=== PATIENT | female | born 1930 | race Caucasian/White ===

== ENCOUNTER 2017-05-25 10:29 | Inpatient (IN) | payer OTHER, BC ==
--- NOTE | 2017-05-25 10:45 | PDOC ---
History of Present Illness - General History Source: Patient, Family Exam Limitations: No Limitations - History of Present Illness Initial Comments: 05/25/17 11:28 85 year old female, with significant past medical history of colitis, anxiety, HTN, HLD, and kidney stones, who presents to the emergency room today complaining of 2 episodes of diarrhea and crampy lower abdominal pain over the past 3 days. The patient states that she experienced one episode of diarrhea on Friday and another episode of diarrhea today. Denies blood and mucous in the stool. She explains that the episode of diarrhea came on so quickly, that it got all over her bed. When she went into the shower to clean up, she accidentally fell into the laundry basket. She denies head trauma, LOC, and any injuries. She notes that she also had an episode of non exertional SOB that occurred at rest last night around 1am. She described this episode as a weird feeling as if she could not catch her breath that she has never experienced before. She took a Xanax and was able to fall asleep. Denies chest pain, cough. Denies fever, chills, nausea, vomiting. Denies recent travel, sick contact. Denies leg swelling. Denies dysuria, hematuria, urinary frequency. Allergies: Sulfa Surgical hx: appendectomy, uterine sling, ovarian cyst removal, bilateral meniscus repairs Social hx: Current everyday tobacco use (4 cigarettes/day over the past year). No alcohol or drug use. PCP: Dr. Sang Matute Caseworker Dr. Ponce Becker <Kait Umaña - Last Filed: 05/25/17 12:49> <Brooke Scuhlz - Last Filed: 05/25/17 15:35> - General Chief Complaint: Diarrhea Stated Complaint: ABD PAIN Time Seen by Provider: 05/25/17 10:44 Past History <Kait Umaña - Last Filed: 05/25/17 12:49> - Past Medical History COPD: No GI Disorders: Yes (LOW PANCREATIC ENZYMES) Disorders: Yes (COLITIS) Hypercholesterolemia: Yes Psychiatric Problems: Yes (ANXIETY) - Surgical History Abdominal Surgery: Yes Appendectomy: Yes Orthopedic Surgery: Yes (LEFT KNEE ARTHROSCOPY & RIGHT) - Suicide/Smoking/Psychosocial Hx Smoking History: Current every day smoker Have you smoked in the past 12 months: No Number of Cigarettes Smoked Daily: 4 If you are a former smoker, when did you quit?: 15YRS AGO Information on smoking cessation initiated: No Hx Alcohol Use: No Drug/Substance Use Hx: No Substance Use Type: None Hx Substance Use Treatment: No <ZeusBrooke - Last Filed: 05/25/17 15:35> - Past Medical History Allergies/Adverse Reactions: Allergies Allergy/AdvReac Type Severity Reaction Status Date / Time Sulfa (Sulfonamide AdvReac Nausea Verified 05/25/17 10:36 Antibiotics) Home Medications: Ambulatory Orders Rosuvastatin [Crestor -] 5 mg PO HS 07/09/13 Cranberry 0 mg PO TID 05/25/17 Lipase/Protease/Amylase [Zenpep Dr 10,000 Units Capsule] 40,000 units PO TID 09/06 Review of Systems - Review of Systems Able to Perform ROS?: Yes Comments:: 05/25/17 11:28 GENERAL/CONSTITUTIONAL: No fever or chills. No weakness. HEAD, EYES, EARS, NOSE AND THROAT: No change in vision. No ear pain or discharge. No sore throat. GASTROINTESTINAL: +diarrhea, mild lower abdominal cramping. No nausea, vomiting , or constipation. GENITOURINARY: No dysuria, frequency, or change in urination. CARDIOVASCULAR: No chest pain or shortness of breath. RESPIRATORY: No cough, wheezing, or hemoptysis. MUSCULOSKELETAL: No joint or muscle swelling or pain. No neck or back pain. SKIN: No rash NEUROLOGIC: No headache, vertigo, loss of consciousness, or change in strength/ sensation. ENDOCRINE: No increased thirst. No abnormal weight change. HEMATOLOGIC/LYMPHATIC: No anemia, easy bleeding, or history of blood clots. ALLERGIC/IMMUNOLOGIC: No hives or skin allergy. <Kait Umaña - Last Filed: 05/25/17 12:49> *Physical Exam - Vital Signs Last Vital Signs Temp Pulse Resp BP Pulse Ox 97.4 F L 87 20 102/57 99 05/25/17 10:32 05/25/17 10:32 05/25/17 10:32 05/25/17 10:32 05/25/17 10:32 - Physical Exam Comments: 05/25/17 11:28 Constitutional: Awake, alert, oriented. No acute distress. Head: Normocephalic. Atraumatic Eyes: PERRL. EOMI. Conjunctivae are not pale. ENT: Mucous membranes are moist and intact. Posterior pharynx without exudates or erythema. Uvula midline. Neck: Supple. Full ROM. No lymphadenopathy. Cardiovascular: Regular rate. Regular rhythm. S1, S2 regular. Distal pulses are 2+ and symmetric. Pulmonary/Chest: +tachypnea, +diminished breath sounds bilaterally, + conversational dyspnea. No evidence of respiratory distress. No wheezing, rales or rhonchi. Abdominal: Soft and non-distended. There is no tenderness. No rebound, guarding or rigidity. No organomegaly. No palpable masses. Good bowel sounds. Back: No CVA tenderness. Musculoskeletal: No edema. No cyanosis. No clubbing. Full range of motion in all extremities. Nocalf tenderness. Radial/pedal pulses are intact and 2+ bilaterally Skin: Skin is warm and dry. No petechiae. No purpura. Neurological: Alert and oriented to person, place, and time. Cranial nerves II -XII are grossly intact. Normal speech. Strength is grossly symmetric. No sensory deficits. Psychiatric: Good eye contact. Normal interaction, affect and behavior. <Kait Umaña - Last Filed: 05/25/17 12:49> - Vital Signs Last Vital Signs Temp Pulse Resp BP Pulse Ox 97.4 F L 87 20 102/57 99 05/25/17 10:32 05/25/17 10:32 05/25/17 10:32 05/25/17 10:32 05/25/17 10:32 <Brooke Schulz - Last Filed: 05/25/17 15:35> Heart Score/ECG Review - ECG Intrepretation Comment:: 05/25/17 11:26 sinus at 73, poor r wave progression, q waves anterior and inferior leads that are age indeterminate. no acute st/t wave findings <Brooke Schulz - Last Filed: 05/25/17 15:35> ED Treatment Course - LABORATORY CBC & Chemistry Diagram: 05/25/17 11:45 05/25/17 11:45 <Kait Umaña - Last Filed: 05/25/17 12:49> - LABORATORY CBC & Chemistry Diagram: 05/25/17 11:45 12/03/17 11:45 <Brooke Schulz - Last Filed: 05/25/17 15:35> Medical Decision Making - Critical Care Time Total Critical Care Time (minutes): 30 Critical Care Statement: The care of this patient involved high complexity decision making to prevent further life threatening deterioration of the patient 's condition and/or to evaluate & treat vital organ system(s) failure or risk of failure. - Medical Decision Making 05/25/17 11:03 a/p: 86yo female with diarrhea x 2, sob/dyspnea, lower abd pain -feels generally weak, needs acs workup, ct abd/pelvis, ekg, cxr, labs, electrolytes -concern for colitis vs viral illness. -will give ivf and monitor 05/25/17 12:52 pt with elevated wbc count to 21, cxr clear, awaiting ct abd also with elevated trop to 3, elevated cr to 2 from baseline. pt never had cp and doesn't have cp currnelty. will continue ivf hydration call placed to dr. matute and dr becker pt will need to be admitted updated pt and agrees to stay for further eval. 05/25/17 13:[address] weems who is eval the ekg and will see the patient in consult tomorrow. poss type 2 troponin spill 05/25/17 13:[address] matute - accepts pt to service. tele. 05/25/17 15:[address] matute to give update on ct results. will place consult to urology for hydro and 5.5mm nonobstructing stone. <Brooke Schulz - Last Filed: 05/25/17 15:35> *DC/Admit/Observation/Transfer - Attestations Scribe Attestion: 05/25/17 11:29 Documentation prepared by NADIA Coburn, acting as biomedical instrument technician for Brooke Schulz DO. <Kait Umaña - Last Filed: 05/25/17 12:49> - Discharge Dispostion Admit: Yes - Attestations Physician Attestion: 05/25/17 12:53 I, Dr. Brooke Schulz DO, attest that this document has been prepared under my direction and personally reviewed by me in its entirety. I further attest, that it accurately reflects all work, treatment, procedures and medical decision -making performed by me. <Brooke Schulz - Last Filed: 05/25/17 15:35> Diagnosis at time of Disposition: NSTEMI (non-ST elevated myocardial infarction), JUDIE (acute kidney injury), Leukocytosis, Diarrhea, Hydronephrosis - Discharge Dispostion Condition at time of disposition: Guarded
[2017-05-25] MEDS ORDERED: SODIUM CHLORIDE 0.9% 1000 ML INFUS.BAG IV ONE (11:04)
[2017-05-25 12:03] LABS: MCH 29.3 pg (25.7-33.7); MCHC 33.2 g/dl (32.0-36.0); MEAN CELL VOLUME 88.3 fl (80-96); MEAN PLT VOLUME 7.8 fl (7.5-11.1); PLATELET COUNT 184 K/MM3 (134-434); RDW 13.7 % (11.6-15.6); WHITE BLOOD COUNT 21.3 K/mm3 (4.0-10.0)
[2017-05-25 12:27] LABS: ALBUMIN 3.5 g/dl (3.4-5.0); ANION GAP 12 (8-16); BILIRUBIN,TOTAL 0.8 mg/dL (0.2-1.0); CALCIUM 8.5 mg/dL (8.5-10.1); CO2 23 mmol/L (21-32); GLUCOSE,RANDOM 145 mg/dL (74-106); SGPT/ALT 34 U/L (12-78)
[2017-05-25 12:42] LABS: ALK PHOS 90 U/L (45-117); CPK 276 IU/L (26-192)
[2017-05-25 12:46] LABS: MAGNESIUM 1.8 mg/dL (1.8-2.4); SGOT/AST 50 U/L (15-37); TROPONIN I 3.27 ng/ml (0.00-0.05)
[2017-05-25] MEDS ORDERED: ASPIRIN 81 MG CHEWABLE TABLETS PO ONE (12:51)
[2017-05-25] MEDS ORDERED: ASPIRIN 325 MG TABLET ONE (13:19)
[2017-05-25 14:00] LABS: TOTAL CELLS COUNTED 100
[2017-05-25 14:01] LABS: METAMYELOCYTE 2 % (0-2); PLATELET ESTIMATE ADEQUATE
[2017-05-25 15:06] VITALS: BMI 26.9
[2017-05-25] MEDS: METRONIDAZOLE 500 MG PREMIXED 500 MG/100 ML MG IVPB SCH ×2 (17:03→20:47)
[2017-05-25 17:23] LABS: TROPONIN I 2.52 ng/ml (0.00-0.05)
[2017-05-25] MEDS: SODIUM CHLORIDE 1,000 ML IV SCH (17:33)
[2017-05-25 18:02] LABS: URINE APPEARANCE CLOUDY; URINE BILIRUBIN NEGATIVE (NEGATIVE); URINE BLOOD 2+ (NEGATIVE); URINE COLOR YELLOW; URINE GLUCOSE (UA) NEGATIVE (NEGATIVE); URINE KETONE NEGATIVE (NEGATIVE); URINE NITRITE NEGATIVE (NEGATIVE); URINE UROBILINOGEN NEGATIVE mg/dL (0.2-1.0)
[2017-05-25 18:07] LABS: URINE PROTEIN 2+ (NEGATIVE)
[2017-05-25 18:09] LABS: URINE BACTERIA MODERATE /hpf (NONE SEEN); URINE MUCUS RARE; URINE RBC 11 /hpf (0-3); URINE WBC 347 /hpf (3-5)
[2017-05-25] MEDS: ROSUVASTATIN CA 5 MG TABLET (FP) PO SCH (21:07)
[2017-05-25 21:48] LABS: URINE LEUK ESTERASE 3+ (NEGATIVE)
[2017-05-26 00:53] LABS: TROPONIN I 1.51 ng/ml (0.00-0.05)
[2017-05-26] MEDS: METRONIDAZOLE 500 MG PREMIXED 500 MG/100 ML MG IVPB SCH ×4 (02:16→23:39)
[2017-05-26 07:09] LABS: BASOPHIL 0.2 % (0-2.0); EOSINOPHIL 0.5 % (0-4.5); MCH 29.2 pg (25.7-33.7); MEAN CELL VOLUME 88.4 fl (80-96); MEAN PLT VOLUME 7.3 fl (7.5-11.1); NEUTROPHILS 88.1 % (42.8-82.8); PLATELET COUNT 132 K/MM3 (134-434); WHITE BLOOD COUNT 12.3 K/mm3 (4.0-10.0)
[2017-05-26 07:35] LABS: ALBUMIN 2.8 g/dl (3.4-5.0); ANION GAP 8 (8-16); CALCIUM 7.9 mg/dL (8.5-10.1); CO2 24 mmol/L (21-32); GLUCOSE,RANDOM 92 mg/dL (74-106)
[2017-05-26 07:38] LABS: ALK PHOS 76 U/L (45-117); BILIRUBIN,TOTAL 0.6 mg/dL (0.2-1.0); CREATININE 1.2 mg/dL (0.55-1.02); SGOT/AST 33 U/L (15-37); SGPT/ALT 28 U/L (12-78); TOT PROT 5.1 g/dl (6.4-8.2)
[2017-05-26 08:01] LABS: TROPONIN I 1.16 ng/ml (0.00-0.05)
--- NOTE | 2017-05-26 10:10 | HP ---
Admitting History and Physical - Primary Care Physician PCP: Sang Matute - Admission Chief Complaint: Diarrhea. Weakness. ABnormal Cardiac enzimes History of Present Illness: Pt came to ER after an episode on watery stool incontinency while asleep and weakness. Pt with watery stool 2 days prior to nocturnal episode mentioned. In ER pt was noticed to have elevated Trop I. Pt also with left Hydronephrosis ( on abd/ pelvis CT scan). Pt was admitted to telemetry. Cardi and consults were called in. History Source: Patient - Past Medical History Cardiovascular: Yes: HTN, Hyperlipdemia - Smoking History Smoking history: Current every day smoker Have you smoked in the past 12 months: No Aproximately how many cigarettes per day: 4 If you are a former smoker, when did you quit?: 15YRS AGO - Alcohol/Substance Use Hx Alcohol Use: No History of Substance Use: reports: None - Social History ADL: Independent History of Recent Travel: No Home Medications - Allergies Allergies/Adverse Reactions: Allergies Allergy/AdvReac Type Severity Reaction Status Date / Time Sulfa (Sulfonamide AdvReac Nausea Verified 05/25/17 10:36 Antibiotics) - Home Medications Home Medications: Ambulatory Orders Rosuvastatin [Crestor -] 5 mg PO HS 07/09/13 Cranberry 0 mg PO TID 05/25/17 Lipase/Protease/Amylase [Zenpep Dr 10,000 Units Capsule] 40,000 units PO TID 09/06 Review of Systems - Review of Systems Constitutional: denies: Chills, Fever Eyes: denies: Blurred Vision, Double Vision HENT: denies: Difficult Swallowing, Ear Discharge, Ear Pain, Nasal Congestion, Throat Pain Neck: denies: Pain on Movement, Stiffness, Tenderness Cardiovascular: denies: Chest Pain, Edema, Palpitations Respiratory: reports: SOB. denies: Cough Gastrointestinal: reports: Diarrhea, Nausea. denies: Rectal Bleeding, Vomiting Genitourinary: denies: Burning, Discharge, Dysuria Musculoskeletal: denies: Back Pain, Extremity Pain, Joint Swelling Integumentary: denies: Eczema, Rash Neurological: denies: Change in Speech, Numbness Endocrine: denies: Excessive Sweating, Intolerance to Cold Hematology/Lymphatic: denies: Easily Bruised, Excessive Bleeding Psychiatric: denies: Altered Sleep Pattern, Anxiety Physical Examination Vital Signs: Vital Signs Temperature 98.4 F 12/04/17 06:00 Pulse Rate 71 05/26/17 06:00 Respiratory Rate 20 05/26/17 06:00 Blood Pressure 132/74 05/26/17 06:00 O2 Sat by Pulse Oximetry (%) 97 05/25/17 20:00 Constitutional: Yes: Well Nourished, No Distress Eyes: Yes: Conjunctiva Clear, EOM Intact, PERRL HENT: Yes: Normocephalic, Pharyngeal Erythema. No: Epistaxis, Rhinnorhea Neck: Yes: Trachea Midline. No: Lymphadenopathy Cardiovascular: Yes: Regular Rate and Rhythm, S1, S2 Respiratory: Yes: Regular, CTA Bilaterally. No: Rales Gastrointestinal: Yes: Soft. No: Normal Bowel Sounds, Hepatomegaly, Palpable Mass, Splenomegaly, Vomiting ...Rectal Exam: Yes: Deferred Breast(s): Yes: Other (deferred) Musculoskeletal: No: Back Pain, Joint Swelling Edema: No Neurological: Yes: Alert, Oriented, Cran Nerves II-XII Intact Labs: CBC, BMP 05/26/17 05:40 05/26/17 05:40 Imaging - Results Chest X-ray: Report Reviewed Cat Scan: Report Reviewed Problem List - Problems (1) Diarrhea Code(s): R19.7 - DIARRHEA, UNSPECIFIED (2) Abnormal cardiac enzyme level Code(s): R74.8 - ABNORMAL LEVELS OF OTHER SERUM ENZYMES (3) Hypertension Code(s): I10 - ESSENTIAL (PRIMARY) HYPERTENSION (4) Hyperlipidemia Code(s): E78.5 - HYPERLIPIDEMIA, UNSPECIFIED (5) Weakness Code(s): R53.1 - WEAKNESS (6) Renal cyst Code(s): N28.1 - CYST OF KIDNEY, ACQUIRED (7) Diverticulosis Code(s): K57.90 - DVRTCLOS OF INTEST, PART UNSP, W/O PERF OR ABSCESS W/O BLEED (8) Hydronephrosis Code(s): N13.30 - UNSPECIFIED HYDRONEPHROSIS Assessment/Plan Admit to telemetry Serial CE Cardio consult consult GI consult IV Flagyl IVF Liquid Diet AM labs OOBTC w Assistance. Case was D/w pt's nurse.
--- NOTE | 2017-05-26 12:09 | CON.CARD ---
Consult Consult Specialty:: Cardiology Referred by:: Dr. Matute Reason for Consultation:: Cardiac evaluation - History of Present Illness Chief Complaint: Elevated troponin History of Present Illness: Patient is an 85 year old female with underlying history of hypertension, hypercholesterolemia, nephrolithiasis and colitis who presents with episode of diarrhea and abdominal cramp. She took Xanax and fell asleep. She soiled her bed with diarrhea when she woke up. When she went to the bathroom to clean up, she accidentally fell into the laundry basket. She denies any trauma or LOC. She has no visible injuries. She also had episode of shortness of breath. She was brought into the hospital at the advice of her children. Currently, she denies chest pain, shortness of breath or palpitations. She did have an episode of difficulty catching her breath, but could not elaborate her symptoms. She denies paroxysmal nocturnal dyspnea or orthopnea. She denies fever or chills. She denies headache or lightheadedness. - History Source History Provided By: Patient, Medical Record Limitations to Obtaining History: No Limitations - Past Medical History Cardio/Vascular: Yes: HTN, Hyperlipdemia Renal/: Yes: Renal Calculi - Past Surgical History Past Surgical History: Yes: Appendectomy Additional Surgical History: Uterine sling, ovarian cyst removal, meniscus repair - Alcohol/Substance Use Hx Alcohol Use: No History of Substance Use: reports: None - Smoking History Smoking history: Current every day smoker Have you smoked in the past 12 months: No Aproximately how many cigarettes per day: 4 If you are a former smoker, when did you quit?: 15YRS AGO - Social History ADL: Independent History of Recent Travel: No Home Medications - Allergies Allergies/Adverse Reactions: Allergies Allergy/AdvReac Type Severity Reaction Status Date / Time Sulfa (Sulfonamide AdvReac Nausea Verified 05/25/17 10:36 Antibiotics) - Home Medications Home Medications: Ambulatory Orders Rosuvastatin [Crestor -] 5 mg PO HS 07/09/13 Cranberry 0 mg PO TID 05/25/17 Lipase/Protease/Amylase [Liyah Jiang 10,000 Units Capsule] 40,000 units PO TID 09/06 Review of Systems - Review of Systems Constitutional: denies: Chills, Fever Cardiovascular: reports: Shortness of Breath. denies: Chest Pain, Palpitations Respiratory: denies: Cough, Orthopnea, PND Gastrointestinal: reports: Abdominal Pain, Diarrhea. denies: Constipation, Melena, Nausea, Rectal Bleeding, Vomiting Genitourinary: denies: Dysuria, Flank Pain, Hematuria Neurological: reports: Weakness. denies: Dizziness, Headache, Numbness, Seizure , Syncope Vital Signs: Vital Signs Temperature 98.4 F 05/26/17 06:00 Pulse Rate 71 05/26/17 06:00 Respiratory Rate 20 05/26/17 06:00 Blood Pressure 132/74 05/26/17 06:00 O2 Sat by Pulse Oximetry (%) 97 05/25/17 20:00 Neck: Yes: Supple Respiratory: Yes: CTA Bilaterally Gastrointestinal: Yes: Normal Bowel Sounds, Soft. No: Tenderness Cardiovascular: Yes: Regular Rate and Rhythm JVD: No Carotid Bruit: No PMI: Non-Displaced Heart Sounds: Yes: S1, S2 Murmur: Yes: Systolic Murmur, Grade 1 Edema: No - Other Data Labs, Other Data: CBC, BMP 05/26/17 05:40 05/26/17 05:40 Troponin, BNP 05/25/17 05/25/17 05/25/17 11:45 11:45 16:35 Troponin I 3.27 H* 2.52 H* B-Natriuretic Peptide 7007.24 H 05/25/17 05/26/17 23:00 05:40 Troponin I 1.51 H* 1.16 H* B-Natriuretic Peptide Sinus rhythm with LVH Echo: Pending Problem List - Problems (1) Demand ischemia Code(s): I24.8 - OTHER FORMS OF ACUTE ISCHEMIC HEART DISEASE (2) Diarrhea Code(s): R19.7 - DIARRHEA, UNSPECIFIED Qualifiers: Diarrhea type: unspecified type Qualified Code(s): R19.7 - Diarrhea, unspecified (3) Diverticulosis Code(s): K57.90 - DVRTCLOS OF INTEST, PART UNSP, W/O PERF OR ABSCESS W/O BLEED Qualifiers: Diverticulosis site: unspecified location Diverticulosis bleeding: diverticulosis without bleeding Qualified Code(s): K57.90 - Diverticulosis of intestine, part unspecified, without perforation or abscess without bleeding (4) Hyperlipidemia Code(s): E78.5 - HYPERLIPIDEMIA, UNSPECIFIED Qualifiers: Hyperlipidemia type: pure hypercholesterolemia Qualified Code(s): E78.00 - Pure hypercholesterolemia, unspecified; E78.0 - Pure hypercholesterolemia (5) Hypertension Code(s): I10 - ESSENTIAL (PRIMARY) HYPERTENSION Qualifiers: Hypertension type: essential hypertension Qualified Code(s): I10 - Essential (primary) hypertension (6) Colitis Code(s): K52.9 - NONINFECTIVE GASTROENTERITIS AND COLITIS, UNSPECIFIED (7) NSTEMI (non-ST elevated myocardial infarction) Code(s): I21.4 - NON-ST ELEVATION (NSTEMI) MYOCARDIAL INFARCTION Assessment/Plan 1. Diarrhea with underlying history of colitis - currently stable 2. Elevated troponin - demand ischemic injury 3. Hypertension 4. Hypercholesterolemia 5. History of renal calculi PLAN: 1. If BP remains elevated, may consider initiating anti-hypertensive. May consider beta christina therapy. Also initiate ASA if not contraindicated 2. Continue Crestor 3. Transthoracic echocardiography to assess LV/RV and valvular function 4. Trend cardiac enzymes 5. GI input to follow 6. Further cardiac work up may be considered including nuclear stress testing, but can be done as outpatient as patient currently remains asymptomatic Further plans are to follow Ponce Becker MD
[2017-05-26] MEDS ORDERED: PT OWN MED DRAWER 7, Y5N ONE ×3 (12:26→17:01)
[2017-05-26] MEDS: LIPASE/PROTEASE/AMYLASE 36,000 UNIT CAPSULE PO SCH ×3 (12:36→17:03)
--- NOTE | 2017-05-26 13:28 | EKG ---
Test Reason : Blood Pressure : / mmHG Vent. Rate : 073 BPM Atrial Rate : 073 BPM P-R Int : 184 ms QRS Dur : 098 ms QT Int : 436 ms P-R-T Axes : 042 -13 027 degrees QTc Int : 480 ms NORMAL SINUS RHYTHM VOLTAGE CRITERIA FOR LEFT VENTRICULAR HYPERTROPHY ABNORMAL ECG WHEN COMPARED WITH ECG OF 29-NOV-2014 19:41, PREMATURE ATRIAL COMPLEXES ARE NO LONGER PRESENT Confirmed by ANDRA MCALLISTER MD ([id number]) on 05/26/2017 1:28:31 PM Referred By: Confirmed By:ANDRA MCALLISTER MD
--- NOTE | 2017-05-26 13:28 | EKG ---
Test Reason : Blood Pressure : / mmHG Vent. Rate : 064 BPM Atrial Rate : 064 BPM P-R Int : 198 ms QRS Dur : 096 ms QT Int : 480 ms P-R-T Axes : 062 -11 012 degrees QTc Int : 495 ms NORMAL SINUS RHYTHM MODERATE VOLTAGE CRITERIA FOR LVH, MAY BE NORMAL VARIANT PROLONGED QT ABNORMAL ECG WHEN COMPARED WITH ECG OF 25-MAY-2017 11:10, NO SIGNIFICANT CHANGE WAS FOUND Confirmed by ESVIN YANG, ANDRA ([id number]) on 05/26/2017 1:28:08 PM Referred By: Confirmed By:ANDRA MCALLISTER MD
[2017-05-26] MEDS: SODIUM CHLORIDE 1,000 ML IV SCH (16:07)
[2017-05-26] MEDS: ASPIRIN COATED 81 MG TABLET.EC PO SCH (23:38)
[2017-05-26] MEDS: ROSUVASTATIN CA 5 MG TABLET (FP) PO SCH (23:39)
[2017-05-27] MEDS: METRONIDAZOLE 500 MG PREMIXED 500 MG/100 ML MG IVPB SCH ×4 (03:51→22:07)
[2017-05-27 07:26] LABS: MCH 29.6 pg (25.7-33.7); MCHC 33.6 g/dl (32.0-36.0); MEAN CELL VOLUME 88.1 fl (80-96); MEAN PLT VOLUME 7.7 fl (7.5-11.1); PLATELET COUNT 121 K/MM3 (134-434); RDW 13.9 % (11.6-15.6); WHITE BLOOD COUNT 7.4 K/mm3 (4.0-10.0)
[2017-05-27] MEDS: LIPASE/PROTEASE/AMYLASE 36,000 UNIT CAPSULE PO SCH ×3 (08:23→17:35)
[2017-05-27 08:30] LABS: ALBUMIN 2.8 g/dl (3.4-5.0); ALK PHOS 104 U/L (45-117); ANION GAP 10 (8-16); CALCIUM 7.1 mg/dL (8.5-10.1); CO2 19 mmol/L (21-32); CPK 122 IU/L (26-192); CREATININE 0.9 mg/dL (0.55-1.02); GLUCOSE,RANDOM 116 mg/dL (74-106); SGOT/AST 26 U/L (15-37); SGPT/ALT 23 U/L (12-78); TOT PROT 5.3 g/dl (6.4-8.2); TROPONIN I 0.55 ng/ml (0.00-0.05)
--- NOTE | 2017-05-27 09:54 | PN ---
Progress Note, Physician History of Present Illness: Pt with more formed stool, no N, V, abd pain; she wants to eat "normal" food. Pt w/o SOB, CP, palp. - Current Medication List Current Medications: Active Medications Aspirin (Ecotrin -) 81 mg PO DAILY [facility] Last Admin: 05/26/17 23:38 Dose: 81 mg Metronidazole (Flagyl 500mg Premixed Ivpb -) 500 mg in 100 mls @ 100 mls/hr IVPB Q6H-IV [facility] Last Admin: 05/27/17 09:22 Dose: 100 mls/hr Sodium Chloride (Normal Saline -) 1,000 mls @ 75 mls/hr IV ASDIR [facility] Last Admin: 05/26/17 16:07 Dose: Not Given Metoprolol Tartrate (Lopressor -) 25 mg PO BID [facility] Pancrelipase (Creon Dr 36,000 Units Capsule) 1 cap PO TIDCM [facility] Last Admin: 05/27/17 08:23 Dose: 1 cap Rosuvastatin Calcium (Crestor -) 5 mg PO HS [facility] Last Admin: 05/26/17 23:39 Dose: 5 mg - Objective Vital Signs: Vital Signs Temperature 99.4 F 05/27/17 06:00 Pulse Rate 96 H 05/27/17 06:00 Respiratory Rate 18 05/27/17 06:00 Blood Pressure 163/81 05/27/17 06:00 O2 Sat by Pulse Oximetry (%) 98 05/26/17 22:00 Constitutional: Yes: No Distress, Calm Cardiovascular: Yes: Regular Rate and Rhythm, S1, S2 Respiratory: Yes: Regular, CTA Bilaterally. No: Rales Gastrointestinal: Yes: Normal Bowel Sounds, Soft. No: Tenderness Edema: No Neurological: Yes: Alert, Oriented Labs: CBC, BMP 05/27/17 06:30 05/27/17 06:30 Problem List - Problems (1) Diarrhea Code(s): R19.7 - DIARRHEA, UNSPECIFIED Qualifiers: Diarrhea type: unspecified type Qualified Code(s): R19.7 - Diarrhea, unspecified (2) Abnormal cardiac enzyme level Code(s): R74.8 - ABNORMAL LEVELS OF OTHER SERUM ENZYMES (3) Hypertension Code(s): I10 - ESSENTIAL (PRIMARY) HYPERTENSION Qualifiers: Hypertension type: essential hypertension Qualified Code(s): I10 - Essential (primary) hypertension (4) Hyperlipidemia Code(s): E78.5 - HYPERLIPIDEMIA, UNSPECIFIED Qualifiers: Hyperlipidemia type: pure hypercholesterolemia Qualified Code(s): E78.00 - Pure hypercholesterolemia, unspecified; E78.0 - Pure hypercholesterolemia (5) Weakness Code(s): R53.1 - WEAKNESS (6) Renal cyst Code(s): N28.1 - CYST OF KIDNEY, ACQUIRED (7) Diverticulosis Code(s): K57.90 - DVRTCLOS OF INTEST, PART UNSP, W/O PERF OR ABSCESS W/O BLEED Qualifiers: Diverticulosis site: unspecified location Diverticulosis bleeding: diverticulosis without bleeding Qualified Code(s): K57.90 - Diverticulosis of intestine, part unspecified, without perforation or abscess without bleeding (8) Hydronephrosis Code(s): N13.30 - UNSPECIFIED HYDRONEPHROSIS (9) Hypokalemia Code(s): E87.6 - HYPOKALEMIA Assessment/Plan Admitted to telemetry Serial CE Cardio consult appreciated; case was d/w Dr. Bedoya: no additional tests now if CE are trending down. consult appreciated; case was d/w Dr. Diggs: to f/u as outpationt. GI consult IV Flagyl IVF Liquid Diet AM labs OOBTC w Assistance. Case was D/w pt's nurse.
--- NOTE | 2017-05-27 09:56 | CON.GU ---
Consult Consult Specialty:: Urology Reason for Consultation:: Bilateral nonobstructing renal calculi - History of Present Illness Chief Complaint: Watery diarrhea. No flank pain. - History Source History Provided By: Patient Limitations to Obtaining History: No Limitations - Past Medical History Cardio/Vascular: Yes: HTN, Hyperlipdemia Gastrointestinal: Yes: Other (See HPI) Renal/: Yes: Renal Calculi - Past Surgical History Past Surgical History: Yes: Appendectomy Additional Surgical History: Uterine sling, ovarian cyst removal, meniscus repair - Alcohol/Substance Use Hx Alcohol Use: No History of Substance Use: reports: None - Smoking History Smoking history: Current every day smoker Have you smoked in the past 12 months: No Aproximately how many cigarettes per day: 4 If you are a former smoker, when did you quit?: 15YRS AGO - Social History ADL: Independent History of Recent Travel: No Home Medications - Allergies Allergies/Adverse Reactions: Allergies Allergy/AdvReac Type Severity Reaction Status Date / Time Sulfa (Sulfonamide AdvReac Nausea Verified 05/25/17 10:36 Antibiotics) - Home Medications Home Medications: Ambulatory Orders Rosuvastatin [Crestor -] 5 mg PO HS 07/09/13 Cranberry 0 mg PO TID 05/25/17 Lipase/Protease/Amylase [Zenpep Dr 10,000 Units Capsule] 40,000 units PO TID 09/06 Family Disease History - Family Disease History Family History: Unremarkable Review of Systems - Review of Systems Constitutional: reports: No Symptoms Eyes: reports: No Symptoms HENT: reports: No Symptoms Neck: reports: No Symptoms Cardiovascular: reports: No Symptoms Respiratory: reports: No Symptoms Gastrointestinal: reports: No Symptoms, Diarrhea Genitourinary: denies: No Symptoms, Burning, Discharge, Dysuria, Flank Pain, Frequency, Hematuria, Incontinence, Lesions, Menses, Pain, Testicular Mass, Testicular Pain, Testicular Swelling, Urgency, Vaginal Bleeding, Other Breasts: reports: No Symptoms Reported Musculoskeletal: reports: No Symptoms Integumentary: reports: No Symptoms Neurological: reports: No Symptoms Endocrine: reports: No Symptoms Hematology/Lymphatic: reports: No Symptoms Psychiatric: reports: No Symptoms Physical Exam- Vital Signs: Vital Signs Temperature 99.4 F 05/27/17 06:00 Pulse Rate 96 H 05/27/17 06:00 Respiratory Rate 18 05/27/17 06:00 Blood Pressure 163/81 05/27/17 06:00 O2 Sat by Pulse Oximetry (%) 98 05/26/17 22:00 Constitutional: Yes: Well Nourished, No Distress Eyes: Yes: WNL HENT: Yes: WNL Neck: Yes: WNL Cardiovascular: Yes: WNL Respiratory: Yes: WNL Gastrointestinal: Yes: WNL, Normal Bowel Sounds, Soft. No: Tenderness, Rebound Renal/: Yes: WNL. No: Bladder Distention, CVA Tenderness - Left, CVA Tenderness - Right, Grant Present Kidneys: Yes: WNL Pelvis: Yes: WNL External Genitalia: Yes: WNL Musculoskeletal: Yes: WNL Extremities: Yes: WNL Edema: No Peripheral Pulses WNL: No Integumentary: Yes: WNL Wound/Incision: Yes: Clean/Dry Neurological: Yes: WNL ...Motor Strength: WNL Psychiatric: Yes: WNL Labs: CBC, BMP 05/27/17 06:30 05/27/17 06:30 Imaging - Results Cat Scan: Report Reviewed Problem List - Problems (1) Diarrhea Code(s): R19.7 - DIARRHEA, UNSPECIFIED Qualifiers: Diarrhea type: unspecified type Qualified Code(s): R19.7 - Diarrhea, unspecified Assessment/Plan Pt. admitted with diarrhea. Denies flank or abdominal pain. H/O renal calculi' Noted to have bilateral small non-obstructing renal calculi without obstruction or pain. No urine culture results available . Also has stable kidney cyst. Will order urine culture. No urgent intervention at this time.
[2017-05-27] MEDS ORDERED: METOPROLOL TARTRATE 25 MG TABLET (FP) PO SCH (10:00)
[2017-05-27] MEDS ORDERED: POTASSIUM CHLORIDE TABS 20 MEQ TABLET.ER (FP) PO ONE (10:04)
[2017-05-27] MEDS: ASPIRIN COATED 81 MG TABLET.EC PO SCH (10:12)
--- NOTE | 2017-05-27 11:45 | PN ---
Progress Note (short form) - Note Progress Note: Chief Complaint: Events noted, notes reviewed, denies any chest discomfort or dyspnea History of Present Illness: Seen and examined on telemetry. Events noted, notes reviewed, denies any chest discomfort or dyspnea Denies any abdominal discomfort or diarrhea Medications: Current Medications Aspirin (Ecotrin -) 81 mg PO DAILY [facility] Last Admin: 05/27/17 10:12 Dose: 81 mg Metronidazole (Flagyl 500mg Premixed Ivpb -) 500 mg in 100 mls @ 100 mls/hr IVPB Q6H-IV [facility] Last Admin: 05/27/17 09:22 Dose: 100 mls/hr Sodium Chloride (Normal Saline -) 1,000 mls @ 75 mls/hr IV ASDIR [facility] Last Admin: 05/26/17 16:07 Dose: Not Given Metoprolol Tartrate (Lopressor -) 25 mg PO BID [facility] Last Admin: 05/27/17 10:13 Dose: 25 mg Pancrelipase (Creon Dr 36,000 Units Capsule) 1 cap PO TIDCM [facility] Last Admin: 05/27/17 08:23 Dose: 1 cap Rosuvastatin Calcium (Crestor -) 5 mg PO HS [facility] Last Admin: 05/26/17 23:39 Dose: 5 mg Review of Systems Cardiovascular: As noted above Respiratory: denies: Cough or Sputum Production Gastrointestinal: denies: Nausea, Vomiting, Diarrhea, Constipation or Abdominal Discomfort Musculoskeletal: No Symptoms Reported Endocrine: No Symptoms Reported Vital Signs: Last Vital Signs Temp Pulse Resp BP Pulse Ox 98.1 F 81 19 157/92 98 05/27/17 10:01 05/27/17 10:01 05/27/17 10:01 05/27/17 10:01 05/26/17 22:00 Intake & Output 05/24/17 05/25/17 05/26/17 05/27/17 23:59 23:59 23:59 23:59 Intake Total 183 351 2187 Output Total 300 Balance 005 462 4544 Weight 152 lb Neck: Supple Negative JVD no bruit appreciated Respiratory: CTA Bilaterally Cardiovascular: S1-S2 Regular Rate and Rhythm Grade 1-2/6 systolic murmur Gastrointestinal: Soft Benign Normal Bowel Sounds Ext: No Edema Labs: Troponin, BNP 05/27/17 06:30 Troponin I 0.55 H CBC, BMP 05/27/17 06:30 05/27/17 06:30 Hepatic Panel Total Bilirubin 1.0 mg/dL (0.2-1.0) D 05/27/17 06:30 AST 26 U/L (15-37) D 05/27/17 06:30 ALT 23 U/L (12-78) 05/27/17 06:30 Alkaline Phosphatase 104 U/L (45-117) D 05/27/17 06:30 Albumin 2.8 g/dl (3.4-5.0) L 05/27/17 06:30 Assessment/Plan ASSESSMENT: 1. Coronary artery disease with evidence of demand ischemic injury in context of probable hypotension, precipitated by probable volume loss secondary to diarrhea 2. diastolic left ventricular dysfunction with class 0 [place] Heart [employer] classification left ventricular failure 3. Hypertension 4. Hypercholesterolemia 5. Diarrhea with underlying history of colitis 6. History of nephrolithiasis PLAN: 1. Continue Lopressor therapy and titrate dosage as tolerated and needed 2. Continue Crestor therapy 3. Continue Ecotrin therapy 4. Transthoracic echocardiography to assess LV/RV and valvular function 5. Myocardial perfusion imaging study can be performed as outpatient since patient currently is asymptomatic Above was reviewed in detail with the patient Daniel Bedoya MD
[2017-05-27] MEDS: SODIUM CHLORIDE 1,000 ML IV SCH (14:45)
--- NOTE | 2017-05-27 17:13 | CON.GI ---
Consult Consult Specialty:: Gastroenterology Referred by:: Dr Matute Reason for Consultation:: Diarrhea - History of Present Illness Chief Complaint: Diarrhea History of Present Illness: 86F developed voluminous diarrhea on 05/23 with some cramps. She also describes back pain. She felt a panic attack coming on so she took a Xanax. When she awoke she was in a pool of stool. While cleaning herself up she tripped into her laundry hamper. On arrival she was found to have a WBC of 21K and was started on Flagyl. Her C diff is negative and her diarrhea has subsided. She was diagnosed with pancreatic insufficiency by my associate Dr. Donald Banuelos for which she takes replacement enzymes which she has not interrupted. She had been having 1-2 formed BM daily prior to this diarrhea. She had a colonosocpy with him on 07/13/14 which revealed sigmoid diverticulosis. He She denies ever having had pancreatitis and never abused alcohol. No recent antibiotics o foreign travel. Her diarrhea and cramps have resolved. She had 3 small volume stools today. She is hungry. She attached office records - History Source History Provided By: Patient, Medical Record Limitations to Obtaining History: No Limitations - Past Medical History Cardio/Vascular: Yes: HTN, Hyperlipdemia Gastrointestinal: Yes: Diverticulosis, Other (pancreatitic insufficiency, ischemic colitis 2013) Renal/: Yes: Renal Calculi (requiring ESWL) Reproductive: Yes: Other (chocolate ovarian cysts) Psych: Yes: Anxiety, Panic - Past Surgical History Past Surgical History: Yes: Appendectomy, Colonoscopy, Hysterectomy (TAHBSO), Tonsillectomy Additional Surgical History: Bladder suspension surgery,. chocolate ovarian cyst removal. bilateral knee meniscus repairs - Alcohol/Substance Use Hx Alcohol Use: Yes (rare wine) History of Substance Use: reports: None - Smoking History Smoking history: Current every day smoker Have you smoked in the past 12 months: No Aproximately how many cigarettes per day: 4 If you are a former smoker, when did you quit?: 15YRS AGO - Social History Usual Living Arrangement: Alone ADL: Independent Occupation: retired estate sales Place of : [facility] History of Recent Travel: No Home Medications - Allergies Allergies/Adverse Reactions: Allergies Allergy/AdvReac Type Severity Reaction Status Date / Time Sulfa (Sulfonamide AdvReac Nausea Verified 05/25/17 10:36 Antibiotics) - Home Medications Home Medications: Ambulatory Orders Rosuvastatin [Crestor -] 5 mg PO HS 07/09/13 Cranberry 0 mg PO TID 05/25/17 Lipase/Protease/Amylase [Zenpep Dr 10,000 Units Capsule] 40,000 units PO TID 09/06 Family Disease History - Family Disease History Family Disease History: Heart Disease: Father ( [place] age 77), Other: Mother ( lived to 93) Other Family History: maternal GF had colon cancer Review of Systems - Review of Systems Constitutional: reports: Weakness Eyes: reports: No Symptoms HENT: reports: No Symptoms Neck: reports: No Symptoms Cardiovascular: reports: No Symptoms Respiratory: reports: No Symptoms Gastrointestinal: reports: Abdominal Pain, Diarrhea Genitourinary: reports: No Symptoms Psychiatric: reports: Anxiety Physical Exam-GI Vital Signs: Vital Signs Temperature 99.0 F 05/27/17 17:05 Pulse Rate 70 05/27/17 17:05 Respiratory Rate 20 05/27/17 17:05 Blood Pressure 151/72 05/27/17 17:05 O2 Sat by Pulse Oximetry (%) 98 05/26/17 22:00 CBC,CMP WBC 7.4 K/mm3 (4.0-10.0) D 05/27/17 06:30 RBC 4.32 M/mm3 (3.60-5.2) 05/27/17 06:30 Hgb 12.8 GM/dL (10.7-15.3) 05/27/17 06:30 Hct 38.1 % (32.4-45.2) 05/27/17 06:30 MCV 88.1 fl (80-96) 05/27/17 06:30 MCH 29.6 pg (25.7-33.7) 05/27/17 06:30 MCHC 33.6 g/dl (32.0-36.0) 05/27/17 06:30 RDW 13.9 % (11.6-15.6) 05/27/17 06:30 Plt Count 121 K/MM3 (134-434) L 05/27/17 06:30 MPV 7.7 fl (7.5-11.1) 05/27/17 06:30 Total Counted 100 05/25/17 11:45 Neutrophils % 88.1 % (42.8-82.8) H D 05/26/17 05:40 Neutrophils % (Manual) 94.0 % (42.8-82.8) H* 05/25/17 11:45 Band Neutrophils % 3.0 % 05/25/17 11:45 Lymphocytes % 5.2 % (8-40) L D 05/26/17 05:40 Monocytes % 6.0 % (3.8-10.2) 05/26/17 05:40 Monocytes % (Manual) 1 % (3.8-10.2) L 05/25/17 11:45 Eosinophils % 0.5 % (0-4.5) 05/26/17 05:40 Basophils % 0.2 % (0-2.0) 05/26/17 05:40 Metamyelocytes 2 % (0-2) 05/25/17 11:45 Platelet Estimate Adequate 05/25/17 11:45 Sodium 138 mmol/L (136-145) 05/27/17 06:30 Potassium 3.4 mmol/L (3.5-5.1) L 05/27/17 06:30 Chloride 109 mmol/L (98-107) H 05/27/17 06:30 Carbon Dioxide 19 mmol/L (21-32) L D 05/27/17 06:30 Anion Gap 10 (8-16) 05/27/17 06:30 BUN 15 mg/dL (7-18) D 05/27/17 06:30 Creatinine 0.9 mg/dL (0.55-1.02) D 05/27/17 06:30 Creat Clearance w eGFR 59.51 (>60) 05/27/17 06:30 Random Glucose 116 mg/dL (74-106) H D 05/27/17 06:30 Lactic Acid 2.0 mmol/L (0.4-2.0) 05/25/17 11:55 Calcium 7.1 mg/dL (8.5-10.1) L 05/27/17 06:30 Magnesium 1.8 mg/dL (1.8-2.4) 05/25/17 11:45 Total Bilirubin 1.0 mg/dL (0.2-1.0) D 05/27/17 06:30 AST 26 U/L (15-37) D 05/27/17 06:30 ALT 23 U/L (12-78) 05/27/17 06:30 Alkaline Phosphatase 104 U/L (45-117) D 05/27/17 06:30 Creatine Kinase 122 IU/L (26-192) 05/27/17 06:30 Creatine Kinase Index 2.7 % (0.0-5.0) 05/26/17 05:40 CK-MB (CK-2) 5.868 ng/mL (0.5-3.6) H 05/26/17 05:40 Troponin I 0.55 ng/ml (0.00-0.05) H 05/27/17 06:30 B-Natriuretic Peptide 7007.24 pg/ml (5-450) H 05/25/17 11:45 Total Protein 5.3 g/dl (6.4-8.2) L 05/27/17 06:30 Albumin 2.8 g/dl (3.4-5.0) L 05/27/17 06:30 Lipase 96 U/L (73-393) 05/25/17 11:45 Current Medications Generic Name Dose Route Start Last Admin Trade Name Freq PRN Reason Stop Dose Admin Aspirin 81 mg 05/26/17 22:15 05/27/17 10:12 Ecotrin - PO 81 mg DAILY [facility] Administration Metronidazole 500 mg in 100 mls @ 100 mls/hr 05/25/17 15:45 05/27/17 14:43 Flagyl 500mg Premixed Ivpb - IVPB 100 mls/hr Q6H-IV [facility] Administration Metoprolol Tartrate 50 mg 05/27/17 14:00 Lopressor - PO BID [facility] Pancrelipase 1 cap 05/26/17 10:15 05/27/17 12:10 Ketty Jiang 36,000 Units Capsule PO 1 cap TIDCM [facility] Administration Rosuvastatin Calcium 5 mg 05/25/17 22:00 05/26/17 23:39 Crestor - PO 5 mg HS [facility] Administration Constitutional: Yes: No Distress Eyes: Yes: Conjunctiva Clear HENT: Yes: Normocephalic Neck: Yes: Supple Cardiovascular: Yes: Regular Rate and Rhythm Respiratory: Yes: CTA Bilaterally Gastrointestinal Inspection: Yes: Scars (healed Pfannensteil and vertical RLQ incisions) ...Auscultate: Yes: Normoactive Bowel Sounds ...Palpate: Yes: Soft, Other (nontender) ...Rectal Exam: Yes: Guaiac Positive (semisolid brown guaiac positive stool) Neurological: Yes: Alert Labs: CBC, BMP 05/27/17 06:30 05/27/17 06:30 Microbiology 05/26/17 16:30 Stool Clostridium difficile Antigen (SHERIDAN) - Final 05/26/17 16:30 Stool Clostridium difficile Toxin Assay - Final Imaging - Results Cat Scan: Report Reviewed (Dipti Zaragoza Name: [facility]AL DEPARTMENT OF RADIOLOGY Phys: Brooke Schulz DO : 1930 Age: 86 Sex: F [facility] Acct: [id number] Loc: [address] Exam Date: 05/25/17 Status: [place] [address] Unit Number: [id number] EXAM#: TYPE/EXAM: RESULT: [id number] CT/ABDOMEN PELVIS CT W/O CONTR Diarrhea and abdominal pain. History of colitis. 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 The heart is within normal limits in size. A moderate-sized hiatus hernia is present. Partially distended stomach limiting evaluation of its wall. Evaluation of the liver, spleen and pancreas appear unremarkable. Both adrenal glands appear unremarkable There is a partially exophytic right renal upper pole cyst again seen measuring approximately 3 cm. There is also a partially exophytic left renal upper pole cyst measuring 3.7 cm. Another adjacent smaller cyst is present. Punctate nonobstructing right renal stone. Mild dilatation of the proximal right ureter without gross evidence of a ureteral stone. There is a 4 mm calcific density along posterior margin of the expected location of the ureterovesical junction likely representing a phlebolith. There is [id number] left renal hydronephrosis, mainly dilatation of the renal pelvis with a stone in the renal pelvis layering posteriorly measuring 5.5 mm . No gross left ureteral stone is identified. Partially distended urinary bladder without wall thickening. There is no evidence of small bowel obstruction. Normal-appearing terminal ileum. Nonvisualization of the appendix. Multiple diverticula in the sigmoid and to a lesser extent descending colon without evidence of acute diverticulitis. Perirectal and pericecal fat are clear. Normal size abdominal aorta with calcified atheromatous plaques. No free fluid or free air in the abdomen and pelvis. L2-L3 moderate to marked degenerative disc disease again noted. Impression: Sclerosis coli without evidence of acute diverticulitis. Bilateral renal simple cysts again seen. Punctate nonobstructing right renal stone. There is also likely a punctate nonobstructing left renal stone. Mild to moderate left renal hydronephrosis with a nonobstructing stone layering in the pelvis measuring 5.5 mm. There is mild dilatation of the proximal right anterolisthesis extent left ureter without gross evidence of an ureteral stone, bilaterally. Correlate clinically to determine further evaluation. A few small round calcific densities are present in the pelvis, likely representing phleboliths. Reported By : Manuel Batista MD 05/25/17 1503 Technologist: Carla Aguilar Transcribed Date/Time: 05/25/17 1503 Pin Chaser: Manuel Batista Printed Date /Time: By: Signed by: Manuel Batista Signed on: 25-May-2017 15:04) Problem List - Problems (1) Occult GI bleeding Assessment/Plan: I suspect that her bleeding is the residual of ischemic colitis or perhaps anal irritation form frequent wiping but have offered panendoscopy to exclude malignancy and ulcer disease. She has declined. If her Hb drops she may need to reconsider. Code(s): R19.5 - OTHER FECAL ABNORMALITIES (2) Diarrhea Assessment/Plan: Given the cramps and leucocytosis with negative C diff toxin screening I suspect that Gracie suffered another episode of ischemic colitis. She may alternatively had a viral or bacterial enterocolitis. She appears to be recoveing is I will advance her diet. She does not want a repeat colonoscopy. If she tolerates the solid diet and remains stable I have no GI objection to discharge tomorrow. Continue pancreatic enzymes. I discussed [facility] case with Dr Matute Code(s): R19.7 - DIARRHEA, UNSPECIFIED Qualifiers: Diarrhea type: unspecified type Qualified Code(s): R19.7 - Diarrhea, unspecified
[2017-05-27] MEDS: METOPROLOL TARTRATE 50 MG TABLET (FP) PO SCH (22:06)
[2017-05-27] MEDS: ROSUVASTATIN CA 5 MG TABLET (FP) PO SCH (22:07)
[2017-05-28] MEDS: METRONIDAZOLE 500 MG PREMIXED 500 MG/100 ML MG IVPB SCH ×2 (03:12→09:37)
[2017-05-28 07:26] LABS: BASOPHIL 0.4 % (0-2.0); EOSINOPHIL 0.6 % (0-4.5); MCH 29.2 pg (25.7-33.7); MCHC 33.4 g/dl (32.0-36.0); MEAN CELL VOLUME 87.3 fl (80-96); MEAN PLT VOLUME 8.1 fl (7.5-11.1); NEUTROPHILS 77.6 % (42.8-82.8); PLATELET COUNT 117 K/MM3 (134-434); RDW 13.8 % (11.6-15.6); WHITE BLOOD COUNT 7.8 K/mm3 (4.0-10.0)
[2017-05-28 07:53] LABS: C-REACTIVE PROTEIN 12.9 MG/DL (0.00-0.3)
[2017-05-28 08:00] LABS: ANION GAP 9 (8-16); CALCIUM 7.4 mg/dL (8.5-10.1); CO2 21 mmol/L (21-32); CPK 84 IU/L (26-192); CREATININE 0.9 mg/dL (0.55-1.02); GLUCOSE,RANDOM 94 mg/dL (74-106); TROPONIN I 0.18 ng/ml (0.00-0.05)
[2017-05-28] MEDS: LIPASE/PROTEASE/AMYLASE 36,000 UNIT CAPSULE PO SCH ×2 (09:38→12:19)
[2017-05-28] MEDS: METOPROLOL TARTRATE 50 MG TABLET (FP) PO SCH (09:38)
[2017-05-28] MEDS: ASPIRIN COATED 81 MG TABLET.EC PO SCH (09:38)
[2017-05-28 09:44] LABS: FERRITIN 145.535 ng/ml (6.9-282.5)
[2017-05-28 09:45] VITALS: PULSE 68
[2017-05-28 09:56] VITALS: BP 158/82; TEMP 98
--- NOTE | 2017-05-28 10:57 | PN ---
Progress Note, Physician History of Present Illness: Diarrhea improved, denies chest pain or dyspnea. - Current Medication List Current Medications: Active Medications Aspirin (Ecotrin -) 81 mg PO DAILY [facility] Last Admin: 05/28/17 09:38 Dose: 81 mg Metronidazole (Flagyl 500mg Premixed Ivpb -) 500 mg in 100 mls @ 100 mls/hr IVPB Q6H-IV [facility] Last Admin: 05/28/17 09:37 Dose: 100 mls/hr Metoprolol Tartrate (Lopressor -) 50 mg PO BID [facility] Last Admin: 05/28/17 09:38 Dose: 50 mg Pancrelipase (Danielon Dr 36,000 Units Capsule) 1 cap PO TIDCM [facility] Last Admin: 05/28/17 09:38 Dose: 1 cap Rosuvastatin Calcium (Crestor -) 5 mg PO HS [facility] Last Admin: 05/27/17 22:07 Dose: 5 mg - Objective Vital Signs: Vital Signs Temperature 98 F 05/28/17 09:44 Pulse Rate 68 05/28/17 09:44 Respiratory Rate 20 05/28/17 09:44 Blood Pressure 158/82 05/28/17 09:44 O2 Sat by Pulse Oximetry (%) 98 05/27/17 10:00 Constitutional: Yes: No Distress, Calm Neck: Yes: Supple Cardiovascular: Yes: Regular Rate and Rhythm Respiratory: Yes: Regular, CTA Bilaterally Gastrointestinal: Yes: Normal Bowel Sounds, Soft Edema: No Labs: CBC, BMP 05/28/17 05:48 05/28/17 05:48 - ....Imaging EKG: Report Reviewed (Tele: NSR) Problem List - Problems (1) JUDIE (acute kidney injury) Code(s): N17.9 - ACUTE KIDNEY FAILURE, UNSPECIFIED (2) Demand ischemia Code(s): I24.8 - OTHER FORMS OF ACUTE ISCHEMIC HEART DISEASE (3) Diarrhea Code(s): R19.7 - DIARRHEA, UNSPECIFIED Qualifiers: Diarrhea type: unspecified type Qualified Code(s): R19.7 - Diarrhea, unspecified (4) Hydronephrosis Code(s): N13.30 - UNSPECIFIED HYDRONEPHROSIS Qualifiers: Hydronephrosis type: unspecified Qualified Code(s): N13.30 - Unspecified hydronephrosis (5) Hyperlipidemia Code(s): E78.5 - HYPERLIPIDEMIA, UNSPECIFIED Qualifiers: Hyperlipidemia type: pure hypercholesterolemia Qualified Code(s): E78.00 - Pure hypercholesterolemia, unspecified; E78.0 - Pure hypercholesterolemia (6) Hypertension Code(s): I10 - ESSENTIAL (PRIMARY) HYPERTENSION Qualifiers: Hypertension type: essential hypertension Qualified Code(s): I10 - Essential (primary) hypertension (7) Occult GI bleeding Code(s): R19.5 - OTHER FECAL ABNORMALITIES (8) Renal calculi Code(s): N20.0 - CALCULUS OF KIDNEY (9) Ischemic colitis Code(s): K55.9 - VASCULAR DISORDER OF INTESTINE, UNSPECIFIED (10) Urinary tract infection Code(s): N39.0 - URINARY TRACT INFECTION, SITE NOT SPECIFIED Qualifiers: Urinary tract infection type: acute cystitis Hematuria presence: with hematuria Qualified Code(s): N30.01 - Acute cystitis with hematuria (11) Diastolic dysfunction Code(s): I51.9 - HEART DISEASE, UNSPECIFIED Assessment/Plan 05/27/2017. Transthoracic echocardiography: Normal biventricular size and fxn, mild TR, [place] 1. Coronary artery disease with evidence of demand ischemic injury in context of probable hypotension, precipitated by probable volume loss secondary to diarrhea 2. Diastolic left ventricular dysfunction with class 0 [place] [employer] classification left ventricular failure 3. Hypertension, BP not at goal 4. Hypercholesterolemia 5. Diarrhea and occult GI bleed with underlying history of colitis 6. History of nephrolithiasis 7. UTI 8. JUDIE improved PLAN: 1. Continue Lopressor 50 bid and add Norvasc 5 qd 2. Continue Crestor 5 qhs 3. Continue Ecotrin 81 qd 4. Declines endoscopy, advancing diet as tolerated 5. Myocardial perfusion imaging study can be performed as outpatient since patient currently is asymptomatic [phone] 6. Complete abx course
[2017-05-28] MEDS ORDERED: amLODIPine BESYLATE 5 MG TABLET (FP) PO SCH (11:15)
--- NOTE | 2017-05-28 11:18 | DS ---
Physical Examination Vital Signs: Vital Signs Temperature 98 F 05/28/17 09:44 Pulse Rate 68 05/28/17 09:44 Respiratory Rate 20 05/28/17 09:44 Blood Pressure 158/82 05/28/17 09:44 O2 Sat by Pulse Oximetry (%) 98 05/27/17 10:00 Findings/Remarks: Pt w/o fever, chills, SOB, CP, palp., abd pain; diarrhea is resolving. Pt's dg Parul) at bedside, mother health problems were discussed in detail , all questions were answered. Time spent for managing pt's care: over 50 minutes. Constitutional: Yes: No Distress, Calm Cardiovascular: Yes: Regular Rate and Rhythm, S1, S2 Respiratory: Yes: Regular, CTA Bilaterally. No: Rales Gastrointestinal: Yes: Normal Bowel Sounds, Soft. No: Tenderness Edema: No Neurological: Yes: Alert, Oriented Labs: CBC, BMP 05/28/17 05:48 05/28/17 05:48 Discharge Summary Reason For Visit: NON ST ELEVATION CT DIARRHEA Current Active Problems JUDIE (acute kidney injury) (Acute) Abnormal cardiac enzyme level (Acute) Demand ischemia (Acute) Diarrhea (Acute) Diverticulosis (Acute) Hydronephrosis (Acute) Hyperlipidemia (Acute) Hypertension (Acute) Hypokalemia (Acute) Leukocytosis (Acute) NSTEMI (non-ST elevated myocardial infarction) (Acute) Occult GI bleeding (Acute) Renal calculi (Acute) Renal cyst (Acute) Weakness (Acute) Procedures: Principal: Abd/ pelvis CT scan. ECHO Hospital Course: Pt came to ER with diarrhea and weakness. Pt was noticed to have elevated WBC, Left hydronephrosis, elevated Trop I secondary to demand ischemia). Pt was seen by Cardio (Dr. Bedoya), (Dr. Diggs), GI (Dr. Tavares). Pt was started on Flagyl; pt's diarrhea improved, Trop I is trending down. Pt had ECHO. Pt UCX is + GN; to start PO abtx. Pt to f/u with - to call today for appointment. Pt to f/u with Cardio, my office. Condition: Guarded - Instructions Diet, Activity, Other Instructions: NO strenuous activity Diet: Low cholesterol. Referrals: Sang Matute MD [Primary Care Provider] - (in 1-2 weeks) Ryland Howell MD [Staff Physician] - (within 1 week) Ponce Becker MD [Staff Physician] - (in 1-2 weeks) Disposition: HOME - Home Medications Comprehensive Discharge Medication List: Ambulatory Orders this list might NOT be accurate. Rosuvastatin [Crestor -] 5 mg PO HS 07/09/13 Cranberry 0 mg PO TID 05/25/17 Lipase/Protease/Amylase [Zenpep Dr 10,000 Units Capsule] 40,000 units PO TID 09/06
[2017-05-28] MEDS ORDERED: LEVOFLOXACIN 500 MG TABLET (FP) PO ONE (11:30)
[2017-05-29 06:08] LABS: SERUM IRON 25 ug/dL (27-139); TOTAL IRON BINDING CAPACITY 233 ug/dL (250-450); UIBC 208 ug/dL (118-369)
== END 2017-05-28 13:15 | disposition home or self-care (01) | DRG 391 ==
LOC: JER 10:29 → JERBED 13:56 → J4S 15:53
PROVIDERS: ADMIT Specialist; ATTEND Specialist
DX: K52.9 Noninfective gastroenteritis and colitis, unspecified (principal); I21.A1 Myocardial infarction type 2; N17.9 Acute kidney failure, unspecified; N13.30 Unspecified hydronephrosis; N39.0 Urinary tract infection, site not specified; I24.8 Other forms of acute ischemic heart disease; I50.1 Left ventricular failure, unspecified; F41.9 Anxiety disorder, unspecified; I10 Essential (primary) hypertension; E78.5 Hyperlipidemia, unspecified; F17.210 Nicotine dependence, cigarettes, uncomplicated; D72.829 Elevated white blood cell count, unspecified; K57.90 Diverticulosis of intestine, part unspecified, without perforation or abscess without bleeding; E87.6 Hypokalemia; I25.10 Atherosclerotic heart disease of native coronary artery without angina pectoris
CPT/HCPCS: 36415; 71020-TC; 74176-TC; 80048; 80053; 81003; 81015; 82550; 82553; 82728; 83540; 83550; 83605; 83690; 83735; 83880; 84484; 85025; 85027; 85044; 86140; 87086; 87186; 87324; 87449; 93005; 93010; 93306-TC; 99283-25

== ENCOUNTER 2017-07-03 14:11 | Emergency (ER) | payer OTHER, BC ==
[2017-07-03 14:19] VITALS: BMI 26.5
--- NOTE | 2017-07-03 14:56 | PDOC ---
History of Present Illness - General Chief Complaint: Chest Pain Stated Complaint: CHEST PAIN Time Seen by Provider: 07/03/17 14:31 - History of Present Illness Initial Comments: 07/03/17 15:59 "The patient is an 86 year old female, with significant past medical history of colitis, anxiety (xanax as needed), HTN, HLD, and kidney stones, who presents to the emergency room today complaining of chest pain just 30 minutes prior to her ED arrival. The patient states she was sitting in the gift shop in the hospital when she developed pain to her substernal region with radiation up her left chest. Pain was not exertional, not pleuritic. No SOB or diaphoresis. No nausea/vomiting. No abdominal pain. She denies any other complaints. Pt states that the pain lasted about 15 minutes and has since subsided completely. She currently denies diaphoresis, chest pain, shortness of breath, cough, headache, and dizziness. Denies fever, chills, nausea, vomiting. Denies recent travel, sick contact. Denies leg swelling. Denies dysuria, hematuria, urinary frequency. Allergies: Sulfa Surgical hx: appendectomy, uterine sling, ovarian cyst removal, bilateral meniscus repairs Social hx: Current everyday tobacco use (4 cigarettes/day over the past year). No alcohol or drug use. PCP: Dr. Sang Matute [employer] Dr. Ponce Becker " Past History - Past Medical History Allergies/Adverse Reactions: Allergies Allergy/AdvReac Type Severity Reaction Status Date / Time Sulfa (Sulfonamide AdvReac Nausea Verified 06/03/17 11:08 Antibiotics) Home Medications: Ambulatory Orders Rosuvastatin [Crestor -] 5 mg PO HS 07/09/13 Cranberry 0 mg PO TID 05/25/17 Lipase/Protease/Amylase [Zenpep Dr 10,000 Units Capsule] 40,000 units PO TID 09/06 Amlodipine Besylate [Norvasc -] 5 mg PO DAILY 30 Days #30 tablet MDD 1 05/28/17 Aspirin Coated [Ecotrin -] 81 mg PO DAILY tablet.ec 05/28/17 Metoprolol Tartrate [Lopressor -] 50 mg PO BID #60 tablet MDD 2 05/28/17 COPD: No GI Disorders: Yes (LOW PANCREATIC ENZYMES) Disorders: Yes (COLITIS) Hypercholesterolemia: Yes Psychiatric Problems: Yes (ANXIETY) - Surgical History Abdominal Surgery: Yes Appendectomy: Yes Orthopedic Surgery: Yes (LEFT KNEE ARTHROSCOPY & RIGHT) - Suicide/Smoking/Psychosocial Hx Smoking History: Current some day smoker Have you smoked in the past 12 months: Yes Number of Cigarettes Smoked Daily: 1 If you are a former smoker, when did you quit?: 15YRS AGO Information on smoking cessation initiated: No Hx Alcohol Use: No Drug/Substance Use Hx: No Substance Use Type: None Hx Substance Use Treatment: No Review of Systems - Review of Systems Comments:: 07/03/17 16:00 """GENERAL/CONSTITUTIONAL: No fever or chills. No weakness. HEAD, EYES, EARS, NOSE AND THROAT: No change in vision. No ear pain or discharge. No sore throat. CARDIOVASCULAR: (+) chest pain. No shortness of breath. RESPIRATORY: No cough, wheezing, or hemoptysis. GASTROINTESTINAL: No nausea, vomiting, diarrhea or constipation. GENITOURINARY: No dysuria, frequency, or change in urination. MUSCULOSKELETAL: No joint or muscle swelling or pain. No neck or back pain. SKIN: No rash NEUROLOGIC: No headache, vertigo, loss of consciousness, or change in strength/ sensation. ENDOCRINE: No increased thirst. No abnormal weight change. HEMATOLOGIC/LYMPHATIC: No anemia, easy bleeding, or history of blood clots. ALLERGIC/IMMUNOLOGIC: No hives or skin allergy. """ *Physical Exam - Vital Signs Last Vital Signs Temp Pulse Resp BP Pulse Ox 97.6 F 55 L 20 142/71 96 07/03/17 14:15 07/03/17 15:14 07/03/17 14:15 07/03/17 14:15 07/03/17 15:14 - Physical Exam Comments: 07/03/17 16:01 "GENERAL: Awake, alert, and fully oriented, in no acute distress HEAD: No signs of trauma EYES: PERRLA, EOMI, sclera anicteric, conjunctiva clear ENT: Auricles normal inspection, hearing grossly normal, nares patent, oropharynx clear without exudates. Moist mucosa NECK: Nontender, no stepoffs, Normal ROM, supple, no lymphadenopathy, JVD, or masses LUNGS: Breath sounds equal, clear to auscultation bilaterally. No wheezes, and no crackles HEART: Regular rate and rhythm, normal S1 and S2, no murmurs, rubs or gallops ABDOMEN: Soft, nontender, normoactive bowel sounds. No guarding, no rebound. No masses EXTREMITIES: Normal range of motion, no edema. No clubbing or cyanosis. No cords, erythema, or tenderness NEUROLOGICAL: Cranial nerves II through XII intact. 5/5 strength and sensation in all extremities, Normal speech, normal gait SKIN: Warm, Dry, normal turgor, no rashes or lesions noted. " Heart Score/ECG Review - History History: Slightly suspicious - Electrocardiogram EKG: Non specific repolarization disturbance - Age Age: >/= 65 - Risk Factors Risk Factors Heart Score: Yes Hx Hypercholesterolemia, Yes Hx Hypertension Based on the list above the patient has:: 1-2 risk factors - Troponin Troponin: </= normal limit - Score Heart Score - Total: 4 - ECG Impressions Comment:: 07/03/17 14:50 NSR, no NIKKO/STDs, TWI in V1-V2, intervals wnl, axis wnl ED Treatment Course - LABORATORY CBC & Chemistry Diagram: 07/03/17 15:10 07/03/17 15:10 - ADDITIONAL ORDERS Additional order review: Laboratory Results 07/03/17 07/03/17 07/03/17 15:10 15:10 14:51 PT with INR 12.10 H INR 1.07 PTT (Actin FS) 33.9 Sodium 141 Potassium 4.5 D Chloride 109 H Carbon Dioxide 29 D Anion Gap 3 L BUN 26 H D Creatinine 1.3 H D Creat Clearance w eGFR 38.93 Random Glucose 103 Calcium 8.5 Total Bilirubin 0.5 D AST 20 D ALT 23 Alkaline Phosphatase 78 D Creatine Kinase 85 Cancelled Troponin I < 0.02 Cancelled B-Natriuretic Peptide 434.17 Cancelled Total Protein 6.6 D Albumin 3.5 D Lipase 553 H 07/03/17 15:10 RBC 4.48 MCV 88.9 MCHC 33.1 RDW 14.6 MPV 7.4 L Neutrophils % 67.5 Lymphocytes % 19.9 D Monocytes % 9.8 Eosinophils % 2.0 D Basophils % 0.8 - RADIOLOGY Radiology Studies Ordered: Category Date Time Status CHEST PA & LAT [RAD] Stat Radiology 07/03/17 14:48 Completed Medical Decision Making - Medical Decision Making 07/03/17 14:51 86 F with transient L sided chest pain, now resolved. EKG shows TWI in V1-V2, seen on prior EKG but slightly more pronounced now. Pt with no chest pain currently. PE unlikely as pt is not SOB, with normal vitals. - Labs, trop - CXR - Consult Dr. Becker 07/03/17 16:01 CBC,CMP WBC 7.0 K/mm3 (4.0-10.0) 07/03/17 15:10 RBC 4.48 M/mm3 (3.60-5.2) 07/03/17 15:10 Hgb 13.2 GM/dL (10.7-15.3) 07/03/17 15:10 Hct 39.9 % (32.4-45.2) 07/03/17 15:10 MCV 88.9 fl (80-96) 07/03/17 15:10 MCH 29.4 pg (25.7-33.7) 07/03/17 15:10 MCHC 33.1 g/dl (32.0-36.0) 07/03/17 15:10 RDW 14.6 % (11.6-15.6) 07/03/17 15:10 Plt Count 252 K/MM3 (134-434) D 07/03/17 15:10 MPV 7.4 fl (7.5-11.1) L 07/03/17 15:10 Neutrophils % 67.5 % (42.8-82.8) 07/03/17 15:10 Lymphocytes % 19.9 % (8-40) D 07/03/17 15:10 Monocytes % 9.8 % (3.8-10.2) 07/03/17 15:10 Eosinophils % 2.0 % (0-4.5) D 07/03/17 15:10 Basophils % 0.8 % (0-2.0) 07/03/17 15:10 Sodium 141 mmol/L (136-145) 07/03/17 15:10 Potassium 4.5 mmol/L (3.5-5.1) D 07/03/17 15:10 Chloride 109 mmol/L (98-107) H 07/03/17 15:10 Carbon Dioxide 29 mmol/L (21-32) D 07/03/17 15:10 Anion Gap 3 (8-16) L 07/03/17 15:10 BUN 26 mg/dL (7-18) H D 07/03/17 15:10 Creatinine 1.3 mg/dL (0.55-1.02) H D 07/03/17 15:10 Creat Clearance w eGFR 38.93 (>60) 07/03/17 15:10 Random Glucose 103 mg/dL (74-106) 07/03/17 15:10 Calcium 8.5 mg/dL (8.5-10.1) 07/03/17 15:10 Total Bilirubin 0.5 mg/dL (0.2-1.0) D 07/03/17 15:10 AST 20 U/L (15-37) D 07/03/17 15:10 ALT 23 U/L (12-78) 07/03/17 15:10 Alkaline Phosphatase 78 U/L (45-117) D 07/03/17 15:10 Creatine Kinase 85 IU/L (26-192) 07/03/17 15:10 Troponin I < 0.02 ng/ml (0.00-0.05) 07/03/17 15:10 B-Natriuretic Peptide 434.17 pg/ml (5-450) 07/03/17 15:10 Total Protein 6.6 g/dl (6.4-8.2) D 07/03/17 15:10 Albumin 3.5 g/dl (3.4-5.0) D 07/03/17 15:10 Lipase 553 U/L (73-393) H 07/03/17 15:10 Trop negative. Labs notable for elevated lipase 553. However, pt at this time with no abdominal tenderness, no abdominal pain or nausea. I spoke with Dr. Becker, who reports that pt's stress test 1 week ago was completely normal. He agrees with plan to trend troponins. Will repeat 4 hour troponin. If pt continues to feel well and trops are negative , pt is stable for DC from cardiac standpoint. In terms of pt's slightly elevated lipase, will PO challenge pt. If she tolerates without recurrent pain or nausea, can f/u with GI. 07/03/17 17:13 Pt tolerating PO fluids and candy bar without any recurrent pain or nausea. Pt signed out to oncoming attending at 5PM, pending repeat troponin and re- evaluation. *DC/Admit/Observation/Transfer Diagnosis at time of Disposition: Chest pain - Referrals Referrals: Shilpi Matute [Staff Physician] - Donald Banuelos MD [Staff Physician] - - Patient Instructions Printed Discharge Instructions: DI for Atypical Chest Pain Additional Instructions: Please follow up with Dr. Becker for further evaluation of your chest pain. Call him tomorrow morning to make an appointment as soon as possible (within 1 week). Follow up with Dr. Banuelos regarding your abnormal lab value today. Your bloodwork showed an elevation in your "Lipase", which is an enzyme produced by your pancreas. If you experience recurrent pain, shortness of breath, nausea, vomiting, or any other concerning symptoms, return to the ER immediately. - Post Discharge Activity - Attestations Physician Attestion: 07/03/17 17:17 I, Dr. Camden Snow MD, attest that this document has been prepared under my direction and personally reviewed by me in its entirety. I further attest, that it accurately reflects all work, treatment, procedures and medical decision -making performed by me.
[2017-07-03 15:22] LABS: BASO % 0.8 % (0-2.0); HEMATOCRIT 39.9 % (32.4-45.2); HEMOGLOBIN 13.2 GM/dL (10.7-15.3); LYMPH % 19.9 % (8-40); MCH 29.4 pg (25.7-33.7); MCHC 33.1 g/dl (32.0-36.0); MEAN CELL VOLUME 88.9 fl (80-96); MEAN PLT VOLUME 7.4 fl (7.5-11.1); MONO % 9.8 % (3.8-10.2); NEUT % 67.5 % (42.8-82.8); PLATELET COUNT 252 K/MM3 (134-434); RBC 4.48 M/mm3 (3.60-5.2); RDW 14.6 % (11.6-15.6)
[2017-07-03 15:41] LABS: INR 1.07 (0.82-1.09); PROTHROMBIN TIME (PATIENT) 12.1 SEC (9.98-11.88)
[2017-07-03 15:43] LABS: ALBUMIN 3.5 g/dl (3.4-5.0); ANION GAP 3 (8-16); BLOOD UREA NITROGEN 26 mg/dL (7-18); CALCIUM 8.5 mg/dL (8.5-10.1); CHLORIDE 109 mmol/L (98-107); CO2 29 mmol/L (21-32); GLUCOSE,RANDOM 103 mg/dL (74-106); POTASSIUM 4.5 mmol/L (3.5-5.1); SODIUM 141 mmol/L (136-145)
[2017-07-03 15:44] LABS: LIPASE 553 U/L (73-393)
[2017-07-03 15:45] LABS: ACTIVATED PTT 33.9 SECONDS (26.9-34.4)
[2017-07-03 15:48] LABS: ALK PHOS 78 U/L (45-117); BILIRUBIN,TOTAL 0.5 mg/dL (0.2-1.0); CREATININE 1.3 mg/dL (0.55-1.02); N-TERMINAL BNP 434.17 pg/ml (5-450); SGOT/AST 20 U/L (15-37); SGPT/ALT 23 U/L (12-78); TOT PROT 6.6 g/dl (6.4-8.2)
[2017-07-03 17:35] VITALS: BP 149/82; PULSE 65; TEMP 98
--- NOTE | 2017-07-03 18:55 | PDOC ---
*Physical Exam - Vital Signs Last Vital Signs Temp Pulse Resp BP Pulse Ox 98.0 F 65 16 149/82 100 07/03/17 17:33 07/03/17 17:33 07/03/17 17:33 07/03/17 17:33 07/03/17 17:33 - Physical Exam Comments: 07/03/17 18:55 Gen: aaox3, nad heart: +s1s2 reg Lungs: cta b/l abd: soft, nt/nd +bs Ext: no c/c/e ED Treatment Course - LABORATORY CBC & Chemistry Diagram: 07/03/17 15:10 07/03/17 15:10 - ADDITIONAL ORDERS Additional order review: Laboratory Results 07/03/17 07/03/17 07/03/17 17:33 15:10 15:10 PT with INR 12.10 H INR 1.07 PTT (Actin FS) 33.9 Sodium 141 Potassium 4.5 D Chloride 109 H Carbon Dioxide 29 D Anion Gap 3 L BUN 26 H D Creatinine 1.3 H D Creat Clearance w eGFR 38.93 Random Glucose 103 Calcium 8.5 Total Bilirubin 0.5 D AST 20 D ALT 23 Alkaline Phosphatase 78 D Creatine Kinase 91 85 Troponin I < 0.02 < 0.02 B-Natriuretic Peptide 434.17 Total Protein 6.6 D Albumin 3.5 D Lipase 553 H 07/03/17 14:51 PT with INR INR PTT (Actin FS) Sodium Potassium Chloride Carbon Dioxide Anion Gap BUN Creatinine Creat Clearance w eGFR Random Glucose Calcium Total Bilirubin AST ALT Alkaline Phosphatase Creatine Kinase Cancelled Troponin I Cancelled B-Natriuretic Peptide Cancelled Total Protein Albumin Lipase 07/03/17 15:10 RBC 4.48 MCV 88.9 MCHC 33.1 RDW 14.6 MPV 7.4 L Neutrophils % 67.5 Lymphocytes % 19.9 D Monocytes % 9.8 Eosinophils % 2.0 D Basophils % 0.8 Medical Decision Making - Medical Decision Making 07/03/17 18:50 a/p: pt signed out pending repeat trop for further eval of 15min of cp earlier today -repeat trop negative at this time -re-eval: no cp since earlier today. had stress test on friday that was negative has appt with dr. barajas for friday stable for d/c to home mildly elevated lipase, no abd pain, tolerated 2 meals in the ED discussed all reasons to return to the ED and need for follow up *DC/Admit/Observation/Transfer Diagnosis at time of Disposition: Chest pain - Discharge Dispostion Disposition: HOME Condition at time of disposition: Stable Admit: No - Referrals Referrals: Shilpi Matute [Staff Physician] - Donald Banuelos MD [Staff Physician] - - Patient Instructions Printed Discharge Instructions: DI for Atypical Chest Pain Additional Instructions: Please follow up with Dr. Barajas for further evaluation of your chest pain. Call him tomorrow morning to make an appointment as soon as possible (within 1 week). Follow up with Dr. Banuelos regarding your abnormal lab value today. Your bloodwork showed an elevation in your "Lipase", which is an enzyme produced by your pancreas. If you experience recurrent pain, shortness of breath, nausea, vomiting, or any other concerning symptoms, return to the ER immediately. - Post Discharge Activity
--- NOTE | 2017-07-04 10:12 | EKG ---
Test Reason : Blood Pressure : / mmHG Vent. Rate : 061 BPM Atrial Rate : 061 BPM P-R Int : 204 ms QRS Dur : 092 ms QT Int : 408 ms P-R-T Axes : 046 -20 045 degrees QTc Int : 410 ms NORMAL SINUS RHYTHM VOLTAGE CRITERIA FOR LEFT VENTRICULAR HYPERTROPHY CANNOT RULE OUT SEPTAL INFARCT , AGE UNDETERMINED ABNORMAL ECG Confirmed by MD FOUZIA, TEE ([id number]) on 07/04/2017 10:11:50 AM Referred By: Confirmed By:TEE FRAGOSO MD
== END 2017-07-03 18:57 | disposition home or self-care (01) ==
LOC: JER 14:11
DX: R07.89 Other chest pain (principal); I10 Essential (primary) hypertension; E78.00 Pure hypercholesterolemia, unspecified; F41.9 Anxiety disorder, unspecified; Z72.0 Tobacco use
CPT/HCPCS: 36415; 71046-TC; 80053; 82550; 83690; 83880; 84484; 85025; 85610; 85730; 93005; 93010; 99285-25

== ENCOUNTER 2017-07-14 12:47 | Inpatient (IN) | payer OTHER, BC ==
[2017-07-14 12:54] VITALS: BMI 26.5
--- NOTE | 2017-07-14 15:58 | PDOC ---
History of Present Illness - General Chief Complaint: Eye Problem Stated Complaint: DOUBLE VISION Time Seen by Provider: 07/14/17 15:29 History Source: Patient Exam Limitations: No Limitations - History of Present Illness Initial Comments: 07/14/17 15:46 The patient is an 86F with a PMH of colitis, anxiety (xanax as needed), HTN, HLD , and kidney stones who presents to the ED with complaints of diplopia. The patient states that she woke up at 0600 this morning and saw double of everything. She says that she fell asleep last around 9 or 10 pm without any symptoms. She denies CP, SOB, fever, chills, nausea, vomiting, cough, fever, chills, dysuria, rashes. Past History - Past Medical History Allergies/Adverse Reactions: Allergies Allergy/AdvReac Type Severity Reaction Status Date / Time Sulfa (Sulfonamide AdvReac Nausea Verified 07/14/17 12:49 Antibiotics) Home Medications: Ambulatory Orders Rosuvastatin [Crestor -] 5 mg PO HS 07/09/13 Cranberry 0 mg PO TID 05/25/17 Lipase/Protease/Amylase [Zenpep Dr 10,000 Units Capsule] 40,000 units PO TID 09/06 Amlodipine Besylate [Norvasc -] 5 mg PO DAILY 30 Days #30 tablet MDD 1 05/28/17 Aspirin Coated [Ecotrin -] 81 mg PO DAILY tablet.ec 05/28/17 Metoprolol Tartrate [Lopressor -] 50 mg PO BID #60 tablet MDD 2 05/28/17 COPD: No DVT: No GI Disorders: Yes (LOW PANCREATIC ENZYMES) Disorders: Yes (COLITIS) HTN: Yes Hypercholesterolemia: Yes Psychiatric Problems: Yes (ANXIETY) - Surgical History Abdominal Surgery: Yes Appendectomy: Yes Orthopedic Surgery: Yes (LEFT KNEE ARTHROSCOPY & RIGHT) - Suicide/Smoking/Psychosocial Hx Smoking History: Current some day smoker Have you smoked in the past 12 months: Yes Number of Cigarettes Smoked Daily: 1 If you are a former smoker, when did you quit?: 15YRS AGO Information on smoking cessation initiated: Yes 'Breaking Loose' booklet given: 07/14/17 Hx Alcohol Use: No Drug/Substance Use Hx: No Substance Use Type: None Hx Substance Use Treatment: No Review of Systems - Review of Systems Able to Perform ROS?: Yes Comments:: 07/14/17 18:03 GENERAL/CONSTITUTIONAL: No fever or chills. No weakness. HEAD, EYES, EARS, NOSE AND THROAT: Positive for double vision. No ear pain or discharge. No sore throat. CARDIOVASCULAR: No chest pain, palpitations, or lightheadedness. RESPIRATORY: No cough, wheezing, shortness of breath, or hemoptysis. GASTROINTESTINAL: No nausea, vomiting, diarrhea, constipation, or abdominal pain. GENITOURINARY: No dysuria, frequency, hematuria, or change in urination. MUSCULOSKELETAL: No joint or muscle swelling or pain. No neck or back pain. SKIN: No rash or lesions. NEUROLOGIC: No headache, numbness, tingling, weakness, loss of consciousness, or change in strength/sensation. ENDOCRINE: No increased thirst. No abnormal weight change. HEMATOLOGIC/LYMPHATIC: No anemia, easy bleeding, or history of blood clots. ALLERGIC/IMMUNOLOGIC: No hives or skin allergy. Is the patient limited Maltese proficient: No *Physical Exam - Vital Signs Last Vital Signs Temp Pulse Resp BP Pulse Ox 97.5 F L 72 18 127/77 100 07/14/17 12:50 07/14/17 12:50 07/14/17 12:50 07/14/17 12:50 07/14/17 12:50 - Physical Exam Comments: 07/14/17 18:03 GENERAL: Well developed, well nourished. Awake and alert. No acute distress. HEENT: Normocephalic, atraumatic. Hearing grossly normal. Moist mucous membranes. PERRLA, EOMI. No conjunctival pallor. Sclera are non-icteric. Oropharynx is clear. NECK: Supple. Full ROM. No JVD. Carotid pulses 2+ and symmetric, without bruits. No thyromegaly. No lymphadenopathy. CARDIOVASCULAR: Regular rate and rhythm. No murmurs, rubs, or gallops. Distal pulses are 2+ and symmetric. PULMONARY: No evidence of respiratory distress. Lungs clear to auscultation bilaterally. No wheezing, rales or rhonchi. ABDOMINAL: Soft. Non-tender. Non-distended. No rebound or guarding. No organomegaly. Normoactive bowel sounds. GENITOURINARY: No CVA tenderness bilaterally. MUSCULOSKELETAL: Normal range of motion at all joints. No bony deformities or tenderness. EXTREMITIES: No cyanosis. No clubbing. No edema. No calf tenderness. SKIN: Warm and dry. Normal capillary refill. No rashes. No jaundice. NEUROLOGICAL: Alert, awake, appropriate. Diplopia, worst when looking to the R. Normal vision when each eye is covered.. No deficits to light touch and temperature in face, upper extremities and lower extremities. No motor deficits in the in face, upper extremities and lower extremities. Finger to nose abnormal on R side. Normal speech. Ataxic gait. PSYCHIATRIC: Cooperative. Good eye contact. Appropriate mood and affect. Heart Score/ECG Review #1 ECG reviewed & interpreted by me at: 17:55 General ECG Interpretation: Sinus Rhythm, Normal Rate, Normal Intervals, No acute ischemic changes ED Treatment Course - LABORATORY CBC & Chemistry Diagram: 07/14/17 16:35 07/14/17 16:35 - RADIOLOGY Radiology Studies Ordered: Category Date Time Status HEAD CT WITHOUT CONTRAST [CT] Stat CT Scan 07/14/17 15:44 Ordered CHEST X-RAY PORTABLE* [RAD] Stat Radiology 07/14/17 15:44 Ordered Medical Decision Making - Medical Decision Making 07/14/17 17:22 The patient is an 86F who presents with diplopia. I am concerned for TIA/CVA for the patient. Pending labs/imaging. Neurology neonatal nurse practitioner recommends MRI. Dr. Matute accepts admission for inpatient stroke bed. *DC/Admit/Observation/Transfer Diagnosis at time of Disposition: Diplopia - Discharge Dispostion Condition at time of disposition: Stable Admit: Yes - Referrals Referrals: Sang Matute MD [Primary Care Provider] - - Patient Instructions - Post Discharge Activity
--- NOTE | 2017-07-14 16:22 | PDOC ---
Attending Attestation - Resident Resident Name: Asher Houser - ED Attending Attestation I have performed the following: I have examined & evaluated the patient, The case was reviewed & discussed with the resident, I agree w/resident's findings & plan, Exceptions are as noted - HPI HPI: 07/14/17 16:17 86 F with h/o colitis, anxiety (xanax as needed), HTN, HLD, and kidney stones, presenting to ER with double vision x 1 day. Pt states that she awoke with double vision. Did not have this when she went to sleep last night. Pt denies GARCIA /N/V. Denies neck pain. Denies weakness/numbness/tingling in any extremity. Denies facial droop or slurred speech. Denies blurred vision. She states that she sees double only when looking towards the right. Denies double vision when she looks towards the left. - Physicial Exam PE: 07/14/17 16:22 "GENERAL: Awake, alert, and fully oriented, in no acute distress HEAD: No signs of trauma EYES: PERRLA, EOMI, sclera anicteric, conjunctiva clear ENT: Auricles normal inspection, hearing grossly normal, nares patent, oropharynx clear without exudates. Moist mucosa NECK: Nontender, no stepoffs, Normal ROM, supple, no lymphadenopathy, JVD, or masses LUNGS: Breath sounds equal, clear to auscultation bilaterally. No wheezes, and no crackles HEART: Regular rate and rhythm, normal S1 and S2, no murmurs, rubs or gallops ABDOMEN: Soft, nontender, normoactive bowel sounds. No guarding, no rebound. No masses EXTREMITIES: Normal range of motion, no edema. No clubbing or cyanosis. No cords, erythema, or tenderness NEUROLOGICAL: Cranial nerves II through XII intact. 5/5 strength and sensation in all extremities, Normal speech, normal gait SKIN: Warm, Dry, normal turgor, no rashes or lesions noted. " - Medical Decision Making 07/14/17 16:23 86 F with diplopia on rightward gaze. Exam with no obvious gaze palsy. Possible lateral rectus palsy of R eye or medial rectus palsy of L eye. Etiology at this time unclear. Pt with no headache to suggest aneurysm. Possible neoplasm. CVA unlikely as pt with otherwise non-focal exam. Pt outside of tPA window regardless. - CTH - Labs - Neuro consult - ?MRI CTH unremarkable. Neuro consulted. Will admit for further stroke work up and possible MRI Case discussed in detail with admitting physician including history, physical exam and ancillary studies. Admitting physician has assumed care for the patient and will follow all pending diagnostics and complete the evaluation and treatment. NIH Stroke Scale - Last Known Well Date/Time & Onset Date Last Known Well: 07/13/17 Time Last Known Well: 22:00 - Initial Evaluation Level of consciousness: Alert Ask patient the month and their age: Answers both correctly Ask patient to open & close eyes; make fist and let go: Obeys both correctly Best gaze (horizontal eye movement): Partial gaze palsy Visual field testing: No visual field loss Facial paresis (Show teeth/raise eyebrows/close eyes tight): Normal symmetrical movement Motor Function: Left Arm: Normal Motor Function: Right Arm: Normal (extends arm 90 (or 45) degrees for 10 seconds without drift Motor Function: Left Leg: Normal (extends leg 30 degrees for 5 seconds without drift) Motor Function: Right Leg: Normal (extends leg 30 degrees for 5 seconds without drift) Limb Ataxia: No ataxia Sensory(Use pinprick test arms,legs,trunk,face/side to side): Normal Best language (Describe picture, name items, read sentences): No Aphasia Dysarthria (read several words): Normal articulation Extinction and Inattention: No abnormality - Total Score NIH Stroke Scale Score: 1
[2017-07-14 16:53] LABS: BASO % 0.5 % (0-2.0); EOS % 1.7 % (0-4.5); HEMOGLOBIN 13.1 GM/dL (10.7-15.3); LYMPH % 24.4 % (8-40); MCH 29.3 pg (25.7-33.7); MCHC 32.8 g/dl (32.0-36.0); MEAN CELL VOLUME 89.2 fl (80-96); MEAN PLT VOLUME 7.1 fl (7.5-11.1); MONO % 5.8 % (3.8-10.2); NEUT % 67.6 % (42.8-82.8); PLATELET COUNT 256 K/MM3 (134-434); RBC 4.48 M/mm3 (3.60-5.2); RDW 14.6 % (11.6-15.6); WHITE BLOOD COUNT 6.7 K/mm3 (4.0-10.0)
[2017-07-14 17:19] LABS: ALBUMIN 3.6 g/dl (3.4-5.0); ALK PHOS 77 U/L (45-117); ANION GAP 5 (8-16); BILIRUBIN,TOTAL 0.3 mg/dL (0.2-1.0); BLOOD UREA NITROGEN 25 mg/dL (7-18); CALCIUM 8.2 mg/dL (8.5-10.1); CHLORIDE 107 mmol/L (98-107); CO2 29 mmol/L (21-32); CREATININE 1.1 mg/dL (0.55-1.02); GLUCOSE,RANDOM 189 mg/dL (74-106); MAGNESIUM 2.1 mg/dL (1.8-2.4); POTASSIUM 3.9 mmol/L (3.5-5.1); SGOT/AST 20 U/L (15-37); SGPT/ALT 25 U/L (12-78); SODIUM 141 mmol/L (136-145); TOT PROT 6.7 g/dl (6.4-8.2)
[2017-07-14 17:20] LABS: URINE APPEARANCE CLEAR; URINE BILIRUBIN NEGATIVE (NEGATIVE); URINE BLOOD NEGATIVE (NEGATIVE); URINE COLOR YELLOW; URINE GLUCOSE (UA) NEGATIVE (NEGATIVE); URINE KETONE TRACE (NEGATIVE); URINE NITRITE NEGATIVE (NEGATIVE); URINE PROTEIN NEGATIVE (NEGATIVE); URINE UROBILINOGEN NEGATIVE mg/dL (0.2-1.0)
[2017-07-14 17:29] LABS: URINE LEUK ESTERASE 1+ (NEGATIVE)
[2017-07-14 17:31] LABS: EPI CELLS RARE /HPF (FEW); URINE MUCUS RARE
--- NOTE | 2017-07-14 18:20 | HP ---
Admitting History and Physical - Primary Care Physician PCP: Sang Matute - Admission Chief Complaint: Double Vision History of Present Illness: Pt with Hx/o highcholesterol, woke up this AM with double vision when gazing to the right, no motor weakness, no sensory deficit; pt didn't come to ER right away, just after it was noticed by her dg-in-law ( in the store) that pt is not herself. Pt states that last night when went to bed her vision was normal. Pt w/ o Hx/o TIA, stroke, double vision. History Source: Patient, Family Member (son at bedside) - Past Medical History Cardiovascular: Yes: HTN, Hyperlipdemia Gastrointestinal: Yes: Diverticulosis, Other (pancreatitic insufficiency, ischemic colitis 2013) Renal/: Yes: Renal Calculi (requiring ESWL) Psych: Yes: Anxiety, Panic - Past Surgical History Past Surgical History: Yes: Appendectomy, Colonoscopy, Hysterectomy (TAHBSO), Tonsillectomy - Smoking History Smoking history: Current some day smoker Have you smoked in the past 12 months: Yes Aproximately how many cigarettes per day: 1 If you are a former smoker, when did you quit?: 15YRS AGO - Alcohol/Substance Use Hx Alcohol Use: No History of Substance Use: reports: None - Social History ADL: Independent Occupation: retired estate sales History of Recent Travel: No Home Medications - Allergies Allergies/Adverse Reactions: Allergies Allergy/AdvReac Type Severity Reaction Status Date / Time Sulfa (Sulfonamide AdvReac Nausea Verified 07/14/17 12:49 Antibiotics) - Home Medications Home Medications: Ambulatory Orders Rosuvastatin [Crestor -] 5 mg PO HS 07/09/13 Cranberry 0 mg PO TID 05/25/17 Lipase/Protease/Amylase [Zenpep Dr 10,000 Units Capsule] 40,000 units PO TID 09/06 Amlodipine Besylate [Norvasc -] 5 mg PO DAILY 30 Days #30 tablet MDD 1 05/28/17 Aspirin Coated [Ecotrin -] 81 mg PO DAILY tablet.ec 05/28/17 Metoprolol Tartrate [Lopressor -] 50 mg PO BID #60 tablet MDD 2 05/28/17 Family Disease History - Family Disease History Family Disease History: Heart Disease: Father ( [place] age 77), Other: Mother ( lived to 93) Review of Systems - Review of Systems Constitutional: denies: Chills, Fever Eyes: reports: Double Vision. denies: Blind Spots, Photophobia HENT: denies: Difficult Swallowing, Ear Discharge, Ear Pain, Epistaxis, Nasal Congestion, Throat Pain Neck: denies: Pain on Movement, Stiffness Cardiovascular: reports: Palpitations. denies: Chest Pain, Edema Respiratory: denies: Cough, SOB, Wheezing Gastrointestinal: denies: Abdominal Pain, Constipation, Diarrhea, Nausea Genitourinary: reports: Burning. denies: Discharge, Dysuria Musculoskeletal: denies: Back Pain, Muscle Pain Integumentary: denies: Bruising, Rash Neurological: denies: Change in LOC, Change in Speech, Confusion, Incoordination , Numbness, Parasthesia, Tremors Endocrine: denies: Excessive Sweating, Intolerance to Cold Hematology/Lymphatic: denies: Easily Bruised, Excessive Bleeding Psychiatric: denies: Anxiety, Depression Physical Examination Vital Signs: Vital Signs Temperature 97.5 F L 07/14/17 12:50 Pulse Rate 72 07/14/17 12:50 Respiratory Rate 18 07/14/17 12:50 Blood Pressure 127/77 07/14/17 12:50 O2 Sat by Pulse Oximetry (%) 100 07/14/17 12:50 Constitutional: Yes: No Distress, Calm Eyes: No: Conjunctiva Clear, EOM Intact HENT: Yes: Normocephalic. No: Epistaxis, Rhinnorhea Neck: No: Trachea Midline, Lymphadenopathy, Thyromegaly Cardiovascular: Yes: Regular Rate and Rhythm, S1, S2 Respiratory: Yes: Regular, CTA Bilaterally. No: Rales Gastrointestinal: Yes: Normal Bowel Sounds, Soft, Tenderness ...Rectal Exam: Yes: Deferred Breast(s): Yes: Other (deferred) Musculoskeletal: No: Joint Stiffness, Joint Swelling Extremities: No: Cold, Cool, Cyanosis Edema: No Integumentary: No: Bruising, Rash Neurological: Yes: Alert, Oriented, Other (motor and sensory in UE/ LE/ face is symmetric; no drifting; no nystagmus; + diplopia with right gaze) ...Motor Strength: WNL Psychiatric: Yes: Alert, Oriented Labs: CBC, BMP 07/14/17 16:35 01/22/18 16:35 Imaging - Results Chest X-ray: Report Reviewed Cat Scan: Report Reviewed Problem List - Problems (1) Diplopia Code(s): H53.2 - DIPLOPIA (2) Hyperlipidemia Code(s): E78.5 - HYPERLIPIDEMIA, UNSPECIFIED Qualifiers: Hyperlipidemia type: pure hypercholesterolemia Qualified Code(s): E78.00 - Pure hypercholesterolemia, unspecified; E78.0 - Pure hypercholesterolemia (3) Hypertension Code(s): I10 - ESSENTIAL (PRIMARY) HYPERTENSION Qualifiers: Hypertension type: essential hypertension Qualified Code(s): I10 - Essential (primary) hypertension Assessment/Plan Head CT scan unrevealing. Neuro Consult Cardio consult To order: Carotid US, Lipid Panel, Thyroid tests. AM labs Neurochecks
[2017-07-14] MEDS: METOPROLOL TARTRATE 50 MG TABLET (FP) PO SCH (23:35)
[2017-07-14] MEDS: ROSUVASTATIN CA 5 MG TABLET (FP) PO SCH (23:35)
[2017-07-15 09:10] LABS: CHOLESTEROL 132 mg/dL (50-200); TRIGLYCERIDES 96 mg/dL (35-160)
[2017-07-15 09:15] LABS: ANION GAP 8 (8-16); BLOOD UREA NITROGEN 24 mg/dL (7-18); CHLORIDE 109 mmol/L (98-107); CO2 25 mmol/L (21-32); CREATININE 0.9 mg/dL (0.55-1.02); GLUCOSE,RANDOM 94 mg/dL (74-106); POTASSIUM 4.4 mmol/L (3.5-5.1); SODIUM 142 mmol/L (136-145)
--- NOTE | 2017-07-15 09:30 | PN ---
Progress Note, Physician Chief Complaint: in bed still double no other c/o consults apprecaited awaiting for MRI MRA Brain - Current Medication List Current Medications: Active Medications Aspirin (Ecotrin -) 81 mg PO DAILY [facility] Metoprolol Tartrate (Lopressor -) 50 mg PO BID [facility] Last Admin: 07/14/17 23:35 Dose: 50 mg Pancrelipase (Creon Dr 36,000 Units Capsule) 1 cap PO TIDCM DARIUS Rosuvastatin Calcium (Crestor -) 5 mg PO HS [facility] Last Admin: 07/14/17 23:35 Dose: 5 mg - Objective Vital Signs: Vital Signs Temperature 97.8 F 07/15/17 06:00 Pulse Rate 62 07/15/17 06:00 Respiratory Rate 18 07/15/17 06:00 Blood Pressure 143/78 07/15/17 06:00 O2 Sat by Pulse Oximetry (%) 98 07/14/17 23:36 Constitutional: Yes: No Distress, Calm Eyes: Yes: Conjunctiva Clear HENT: Yes: Atraumatic Neck: Yes: Supple Cardiovascular: Yes: Regular Rate and Rhythm Respiratory: Yes: CTA Bilaterally Gastrointestinal: Yes: Soft. No: Distention Genitourinary: No: CVA Tenderness - Left, CVA Tenderness - Right Musculoskeletal: No: Joint Stiffness, Joint Swelling Extremities: No: Cold, Cool, Cyanosis Edema: No Integumentary: No: Rash, Venous Stasis Changes Neurological: Yes: WNL, Alert, Oriented ...Motor Strength: WNL Psychiatric: Yes: WNL, Alert, Oriented. No: Agitated, Suicidal Ideation Labs: CBC, BMP 07/15/17 05:35 - ....Imaging Other: Report Reviewed Assessment/Plan ASHD HTN HLP renal stones admitted with sudden diplopia cardio, neuro f/u w/u as ordered brain MRI MRA d/w pt
[2017-07-15] MEDS ORDERED: PT OWN MED DRAWER 7, Y5N ONE (09:35)
--- NOTE | 2017-07-15 09:36 | PN ---
Progress Note (short form) - Note Progress Note: Chief Complaint: Events noted, notes reviewed, diplopia persists, denies any additional neurologic deficits, denies any chest discomfort or dyspnea History of Present Illness: Seen and examined on telemetry. Full consult dictated Medications: Current Medications Aspirin (Ecotrin -) 81 mg PO DAILY COUNT INCLUDES [facility] Metoprolol Tartrate (Lopressor -) 50 mg PO BID COUNT INCLUDES [facility] Last Admin: 07/14/17 23:35 Dose: 50 mg Pancrelipase (Creon Dr 36,000 Units Capsule) 1 cap PO TIDCM COUNT INCLUDES THE [facility] Rosuvastatin Calcium (Crestor -) 5 mg PO HS COUNT INCLUDES [facility] Last Admin: 07/14/17 23:35 Dose: 5 mg Review of Systems Cardiovascular: As noted above Respiratory: denies: Cough or Sputum Production Gastrointestinal: denies: Nausea, Vomiting, Diarrhea, Constipation or Abdominal Discomfort Musculoskeletal: No Symptoms Reported Endocrine: No Symptoms Reported Vital Signs: Last Vital Signs Temp Pulse Resp BP Pulse Ox 97.8 F 62 18 143/78 98 07/15/17 06:00 07/15/17 06:00 07/15/17 06:00 07/15/17 06:00 07/14/17 23:36 Intake & Output 07/12/17 07/13/17 07/14/17 07/15/17 23:59 23:59 23:59 23:59 Weight 150 lb 150 lb Neck: Supple Negative JVD no bruit appreciated Respiratory: CTA Bilaterally Cardiovascular: S1-S2 Regular Rate and Rhythm Grade 1-2/6 systolic Ejection murmur Gastrointestinal: Soft Benign Normal Bowel Sounds Ext: No Edema Labs: Troponin, BNP 07/14/17 16:35 Troponin I < 0.02 CBC, BMP 07/15/17 05:35 Hepatic Panel Total Bilirubin 0.3 mg/dL (0.2-1.0) D 07/14/17 16:35 AST 20 U/L (15-37) 07/14/17 16:35 ALT 25 U/L (12-78) 07/14/17 16:35 Alkaline Phosphatase 77 U/L (45-117) 07/14/17 16:35 Albumin 3.6 g/dl (3.4-5.0) 07/14/17 16:35 Assessment/Plan ASSESSMENT: 1. Diplopia, etiology to be determined, no clear evidence of cerebrovascular event, possible 6th nerve palsy 2. Coronary artery disease with history of demand ischemic injury in context of hypotension, angina pectoris, negative Lexiscan MPI study for myocardial ischemia 07/01/2017 3. Diastolic left ventricular dysfunction with class 0 [place] [employer] classification left ventricular failure 4. Hypertension 5. Hypercholesterolemia 6. History of colitis 7. History of nephrolithiasis PLAN: 1. Continue Lopressor therapy 2. Continue Crestor therapy 3. Continue Ecotrin therapy 4. Neurology evaluation and further recommendation pending neurology input Daniel Bedoya MD
[2017-07-15] MEDS: METOPROLOL TARTRATE 50 MG TABLET (FP) PO SCH ×2 (09:45→21:52)
[2017-07-15] MEDS: ASPIRIN COATED 81 MG TABLET.EC PO SCH (09:45)
[2017-07-15] MEDS: LIPASE/PROTEASE/AMYLASE 36,000 UNIT CAPSULE PO SCH ×3 (09:48→17:16)
--- NOTE | 2017-07-15 10:06 | CONSULT ---
Consult - text type - Consultation Consultation Note: Neurology History of Present Illness The patient is an 86F with a PMH of colitis, anxiety (xanax as needed), HTN, HLD , and kidney stones who presents to the ED with complaints of diplopia. The patient states that she woke up at 0600 the morning of admission and saw double of everything from the right side. She says that she fell asleep last around 9 or 10 pm without any symptoms the night before. She denies CP, SOB, fever, chills, nausea, vomiting, cough, fever, chills, dysuria, rashes. CT head completed and did not show acute changes. No other focal deficits, strenght and sensory normal. Son at bedside who believes possible L facial droop and slurred speech. Discussed with them having MRI and MRA to further evaluate and they were in agreement. Optho consult can also be considered. Past History - Past Medical History Allergies/Adverse Reactions: Allergies Allergy/AdvReac Type Severity Reaction Status Date / Time Sulfa (Sulfonamide AdvReac Nausea Verified 07/14/17 12:49 Antibiotics) Home Medications: Ambulatory Orders Rosuvastatin [Crestor -] 5 mg PO HS 07/09/13 Cranberry 0 mg PO TID 05/25/17 Lipase/Protease/Amylase [Zenpep Dr 10,000 Units Capsule] 40,000 units PO TID 09/06 Amlodipine Besylate [Norvasc -] 5 mg PO DAILY 30 Days #30 tablet MDD 1 05/28/17 Aspirin Coated [Ecotrin -] 81 mg PO DAILY tablet.ec 05/28/17 Metoprolol Tartrate [Lopressor -] 50 mg PO BID #60 tablet MDD 2 05/28/17 COPD: No DVT: No GI Disorders: Yes (LOW PANCREATIC ENZYMES) Disorders: Yes (COLITIS) HTN: Yes Hypercholesterolemia: Yes Psychiatric Problems: Yes (ANXIETY) - Surgical History Abdominal Surgery: Yes Appendectomy: Yes Orthopedic Surgery: Yes (LEFT KNEE ARTHROSCOPY & RIGHT) - Suicide/Smoking/Psychosocial Hx Smoking History: Current some day smoker Have you smoked in the past 12 months: Yes Number of Cigarettes Smoked Daily: 1 If you are a former smoker, when did you quit?: 15YRS AGO Information on smoking cessation initiated: Yes 'Breaking Loose' booklet given: 07/14/17 Hx Alcohol Use: No Drug/Substance Use Hx: No Substance Use Type: None Hx Substance Use Treatment: No Review of Systems GENERAL/CONSTITUTIONAL: No fever or chills. No weakness. HEAD, EYES, EARS, NOSE AND THROAT: Positive for double vision. No ear pain or discharge. No sore throat. CARDIOVASCULAR: No chest pain, palpitations, or lightheadedness. RESPIRATORY: No cough, wheezing, shortness of breath, or hemoptysis. GASTROINTESTINAL: No nausea, vomiting, diarrhea, constipation, or abdominal pain. GENITOURINARY: No dysuria, frequency, hematuria, or change in urination. MUSCULOSKELETAL: No joint or muscle swelling or pain. No neck or back pain. SKIN: No rash or lesions. NEUROLOGIC: No headache, numbness, tingling, weakness, loss of consciousness, or change in strength/sensation. ENDOCRINE: No increased thirst. No abnormal weight change. HEMATOLOGIC/LYMPHATIC: No anemia, easy bleeding, or history of blood clots. ALLERGIC/IMMUNOLOGIC: No hives or skin allergy. *Physical Exam Vital Signs Temperature 98.2 F 07/15/17 09:00 Pulse Rate 66 07/15/17 09:00 Respiratory Rate 18 07/15/17 09:00 Blood Pressure 147/86 07/15/17 09:00 O2 Sat by Pulse Oximetry (%) 98 07/14/17 23:36 GENERAL: Well developed, well nourished. Awake and alert. No acute distress. HEENT: Normocephalic, atraumatic. Hearing grossly normal. Moist mucous membranes. PERRLA, EOMI. No conjunctival pallor. Sclera are non-icteric. Oropharynx is clear. NECK: Supple. Full ROM. No JVD. Carotid pulses 2+ and symmetric, without bruits. No thyromegaly. No lymphadenopathy. CARDIOVASCULAR: Regular rate and rhythm. No murmurs, rubs, or gallops. Distal pulses are 2+ and symmetric. PULMONARY: No evidence of respiratory distress. Lungs clear to auscultation bilaterally. No wheezing, rales or rhonchi. ABDOMINAL: Soft. Non-tender. Non-distended. No rebound or guarding. No organomegaly. Normoactive bowel sounds. GENITOURINARY: No CVA tenderness bilaterally. MUSCULOSKELETAL: Normal range of motion at all joints. No bony deformities or tenderness. EXTREMITIES: No cyanosis. No clubbing. No edema. No calf tenderness. SKIN: Warm and dry. Normal capillary refill. No rashes. No jaundice. NEUROLOGICAL: Alert, awake, appropriate. Diplopia, worst when looking to the R. Normal vision when each eye is covered.. No deficits to light touch and temperature in face, upper extremities and lower extremities. No motor deficits in the in face, upper extremities and lower extremities. Finger to nose abnormal on R side. Normal speech. Ataxic gait. PSYCHIATRIC: Cooperative. Good eye contact. Appropriate mood and affect. CBCD WBC 6.7 K/mm3 (4.0-10.0) 07/14/17 16:35 RBC 4.48 M/mm3 (3.60-5.2) 07/14/17 16:35 Hgb 13.1 GM/dL (10.7-15.3) 07/14/17 16:35 Hct 40.0 % (32.4-45.2) 07/14/17 16:35 MCV 89.2 fl (80-96) 07/14/17 16:35 MCHC 32.8 g/dl (32.0-36.0) 07/14/17 16:35 RDW 14.6 % (11.6-15.6) 07/14/17 16:35 Plt Count 256 K/MM3 (134-434) 07/14/17 16:35 MPV 7.1 fl (7.5-11.1) L 07/14/17 16:35 CMP Sodium 142 mmol/L (136-145) 07/15/17 05:35 Potassium 4.4 mmol/L (3.5-5.1) 07/15/17 05:35 Chloride 109 mmol/L (98-107) H 07/15/17 05:35 Carbon Dioxide 25 mmol/L (21-32) 07/15/17 05:35 Anion Gap 8 (8-16) 07/15/17 05:35 BUN 24 mg/dL (7-18) H 07/15/17 05:35 Creatinine 0.9 mg/dL (0.55-1.02) 07/15/17 05:35 Creat Clearance w eGFR 47.21 (>60) 07/14/17 16:35 Calcium 9.0 mg/dL (8.5-10.1) 07/15/17 05:35 Total Bilirubin 0.3 mg/dL (0.2-1.0) D 07/14/17 16:35 AST 20 U/L (15-37) 07/14/17 16:35 ALT 25 U/L (12-78) 07/14/17 16:35 Alkaline Phosphatase 77 U/L (45-117) 07/14/17 16:35 Total Protein 6.7 g/dl (6.4-8.2) 07/14/17 16:35 Albumin 3.6 g/dl (3.4-5.0) 07/14/17 16:35 - RADIOLOGY CT head reviewed MRI, MRA brain ordered Medical Decision Making 86F with a PMH of colitis, anxiety (xanax as needed), HTN, HLD, and kidney stones who presents to the ED with complaints of diplopia. The patient states that she woke up at 0600 the morning of admission and saw double of everything from the right side. She says that she fell asleep last around 9 or 10 pm without any symptoms the night before. She denies CP, SOB, fever, chills, nausea , vomiting, cough, fever, chills, dysuria, rashes. CT head completed and did not show acute changes. No other focal deficits, strenght and sensory normal. Son at bedside who believes possible L facial droop and slurred speech. Will like to R/O CVA. Discussed with them having MRI and MRA to further evaluate and they were in agreement. Optho consult can also be considered. Will defer to PCP on this Conitnue BP monitoring, maintain normotensive range Continue statin Continue ASA for CVA prevention Fall precautions
[2017-07-15 10:15] LABS: HEMATOCRIT 38.7 % (32.4-45.2); HEMOGLOBIN 12.7 GM/dL (10.7-15.3); MCH 29.3 pg (25.7-33.7); MCHC 32.8 g/dl (32.0-36.0); MEAN CELL VOLUME 89.3 fl (80-96); PLATELET COUNT 246 K/MM3 (134-434); RBC 4.33 M/mm3 (3.60-5.2); RDW 14.9 % (11.6-15.6); WHITE BLOOD COUNT 6.3 K/mm3 (4.0-10.0)
--- NOTE | 2017-07-15 10:28 | CONS ---
DATE OF CONSULTATION: 07/15/2017 REQUESTING PHYSICIAN: Sang Matute MD CHIEF COMPLAINT: Sudden onset of double vision/diplopia. HISTORY OF PRESENT ILLNESS: An 86-year-old female known to our service with known history of coronary artery disease status post demand ischemic injury May 2017, angina pectoris, diastolic left ventricular dysfunction, with chronic class 0 [place] [employer] classification left ventricular failure, hypertensive cardiovascular disease, hypercholesterolemia, colitis, nephrolithiasis, who presented to [facility] with sudden onset of double vision which was noted yesterday after awakening from sleep. Patient denied any additional neurologic deficits. Patient did not report any slurred speech. Patient denied any nausea or vomiting. The above-noted diplopia is persistent. Patient denies any chest discomfort. Patient denies any dyspnea, orthopnea, paroxysmal nocturnal dyspnea, or peripheral edema. Patient denies any palpitations, dizziness, lightheadedness, or syncope. Patient recently had Lexiscan myocardial perfusion imaging study performed in our office dated July 01, 2017, which revealed normal myocardial perfusion scan with normal left ventricular contraction pattern on LV gated analysis with calculated left ventricular ejection fraction of 73% at rest and 71% post-Lexiscan infusion. PAST MEDICAL HISTORY: Coronary artery disease with history of demand ischemia May 2017, angina pectoris, negative pharmacologic Lexiscan myocardial perfusion imaging study for myocardial ischemia, diastolic left ventricular dysfunction with class 0 [place] [employer] classification left ventricular failure, hypertensive cardiovascular disease, hypercholesterolemia, colitis, nephrolithiasis. PAST SURGICAL HISTORY: Ovarian cyst surgery, appendectomy, meniscus tear repair. SOCIAL HISTORY: History of tobacco abuse. FAMILY HISTORY: Positive coronary artery disease. ALLERGIES: SULFA. MEDICAL THERAPY: Currently includes aspirin 81 mg once a day, Lopressor 50 mg twice a day, Creon 1 capsule 3 times a day, Crestor 5 mg once a day. REVIEW OF SYSTEMS: Head and Neck: Denies headache, photophobia, blurring of vision but reports diplopia. Respiratory: No cough or sputum production. Cardiovascular: As noted above. Gastrointestinal: Denies nausea, vomiting, diarrhea, abdominal discomfort. Genitourinary: No symptoms reported. Musculoskeletal: History of degenerative joint disease. PHYSICAL EXAMINATION: Vital Signs: Blood pressure is 143/78 mmHg, pulse rate is 62 beats per minute. Head and Neck: Pupils equal and reactive to light and accommodation. Extraocular muscles are intact. Anicteric sclerae. Negative JVD. No bruit appreciated. Chest: Clear to auscultation and percussion. Cardiovascular: S1, S2 regular. Grade 1-2/6 systolic ejection murmur. No clicks or gallops. Abdomen: Soft, benign. Normoactive bowel sounds. Extremities: Negative edema. Intact distal pulses. No calf tenderness. DIAGNOSTIC DATA: Electrocardiogram: Sinus rhythm with no acute ST-segment abnormality. Carotid Doppler study revealed no evidence of high-grade carotid artery disease. CT scan of the head report was noted. Echocardiography dated May 28, 2017, revealed normal left ventricular size and systolic function with trace mitral valve regurgitation and mild tricuspid valve regurgitation with calculated RVSP of 32.1 mmHg. CBC with a white cell count 6.7, hemoglobin 13.1, platelet count 256. Basic metabolic profile revealed sodium 142, potassium 4.4, BUN 24, creatinine 0.9, glucose 94. Troponin less than 0.02. ASSESSMENT: 1. Diplopia, etiology to be determined. No clear evidence of cerebrovascular event. Possible sixth nerve palsy. 2. Coronary artery disease with history of demand ischemic injury in context of hypotension, angina pectoris. Negative Lexiscan myocardial perfusion study for myocardial ischemia, July 01, 2017. 3. Diastolic left ventricular dysfunction with class 0 [place] [employer] classification left ventricular failure. 4. Hypertension. 5. Hypercholesterolemia. 6. History of colitis. 7. History of nephrolithiasis. RECOMMENDATION: 1. Continuation of beta christina therapy, Lopressor. 2. Continuation of Crestor therapy. 3. Continuation of aspirin therapy. 4. Neurology evaluation and further recommendation pending neurology input. Thank you for the kind referral. YAMILET FERNANDO M.D. [id number]
[2017-07-15 13:14] LABS: HDL CHOLESTEROL 60 mg/dL (40-60); LDL CHOLESTEROL (ONLY SJRH) 70 mg/dL (5-100)
--- NOTE | 2017-07-15 18:22 | CON.NEURO ---
Consult Reason for Consultation:: Double vision - History of Present Illness Chief Complaint: double vision. History of Present Illness: Pt with Hx/o highcholesterol, woke up this AM with double vision when gazing to the right, no motor weakness, no sensory deficit; pt didn't come to ER right away, just after it was noticed by her dg-in-law ( in the store) that pt is not herself. Pt states that last night when went to bed her vision was normal. Pt w/ o Hx/o TIA, stroke, double vision. She reports she woke up yesterday with double vision which occurs only when looking to the right, she describes vertical diplopia. She denies concurrent headache, numbness tiongliong and all other neurologic symptoms. She also denies all neurologic symptoms in the past. - History Source History Provided By: Patient - Past Medical History Cardio/Vascular: Yes: HTN, Hyperlipdemia Gastrointestinal: Yes: Diverticulosis, Other (pancreatitic insufficiency, ischemic colitis 2013) Renal/: Yes: Renal Calculi (requiring ESWL) Psych: Yes: Anxiety, Panic - Past Surgical History Past Surgical History: Yes: Appendectomy, Colonoscopy, Hysterectomy (TAHBSO), Tonsillectomy - Alcohol/Substance Use Hx Alcohol Use: No History of Substance Use: reports: None - Smoking History Smoking history: Current some day smoker Have you smoked in the past 12 months: Yes Aproximately how many cigarettes per day: 1 If you are a former smoker, when did you quit?: 15YRS AGO - Social History Usual Living Arrangement: Alone ADL: Independent Occupation: retired estate sales History of Recent Travel: No Home Medications - Allergies Allergies/Adverse Reactions: Allergies Allergy/AdvReac Type Severity Reaction Status Date / Time Sulfa (Sulfonamide AdvReac Nausea Verified 07/14/17 12:49 Antibiotics) - Home Medications Home Medications: Ambulatory Orders Rosuvastatin [Crestor -] 5 mg PO HS 07/09/13 Cranberry 0 mg PO TID 05/25/17 Lipase/Protease/Amylase [Zenpep Dr 10,000 Units Capsule] 40,000 units PO TID 09/06 Amlodipine Besylate [Norvasc -] 5 mg PO DAILY 30 Days #30 tablet MDD 1 05/28/17 Aspirin Coated [Ecotrin -] 81 mg PO DAILY tablet.ec 05/28/17 Metoprolol Tartrate [Lopressor -] 50 mg PO BID #60 tablet MDD 2 05/28/17 Family Disease History - Family Disease History Family Disease History: Heart Disease: Father ( [place] age 77), Other: Mother ( lived to 93) Physical Exam-Neuro Vital Signs: Vital Signs Temperature 97.7 F 07/15/17 17:00 Pulse Rate 61 07/15/17 17:00 Respiratory Rate 20 07/15/17 17:00 Blood Pressure 140/61 07/15/17 17:00 O2 Sat by Pulse Oximetry (%) 98 07/15/17 09:00 Labs: CBC, BMP 07/15/17 09:50 07/15/17 05:35 - Neuro Exam Eyes: Yes: PERRL (EOM-when looking to the right has diplopia, it worsens when she looks to the right and upgaze(inferior oblique function), is able to bury the eye completely in medial canthus when looking to right. There is no nystagmus, there is no ptosis. 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 Increased T2 signal along callosal septal margin.. MRA Brain- Faintly hypoplastic right vertebral, dominant left vertebral but no stenosis noted.) Assessment/Plan Pt. with diplopia of sudden onset, painless. 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 In the differential is a left inferior rectus palsy. Isolated inf. oblique palsy is very rare, is usually congenital or due to trauma-none of these causes are likely. The MRI appearance is due to chronic ischemia, there is no clinical suspicion of demyelinating disease. These palsies usually resolve on their own with time. No evidence of new ischemic event. Suggest: Ophthalmology consult to better define/confirm EOM d/o and possible treatment( can be done as outpatient). Have requested pt. not to drive for next few weeks. Would obtain a carotid doppler study given extensive WM disease. ESR, CRP-on the off chance that this is inflammatory vascular dz. ASA 81mg daily given WM dz/hyperlipidemia. Kindly request patient to f/u with me as outpt. [phone] Thank you, Carmen Perkins
[2017-07-15] MEDS: ROSUVASTATIN CA 5 MG TABLET (FP) PO SCH (21:52)
--- NOTE | 2017-07-16 07:21 | DS ---
Physical Examination Vital Signs: Vital Signs Temperature 97.8 F 07/16/17 05:40 Pulse Rate 60 07/16/17 05:40 Respiratory Rate 16 07/16/17 05:40 Blood Pressure 149/63 07/16/17 05:40 O2 Sat by Pulse Oximetry (%) 98 07/15/17 21:00 Findings/Remarks: in bed awake alert NAD no new c/o feels well except diplopia MRI MRA no acute findings consults and tests reviewed and d/w pt d/w neuro dr Gastelum pt can be DC home f/u as advised; unlikely Mult SClerosis; unlikely systemic ds (autoimmune, Lyme but labs pending, f/u as outpt) UA 17 WBC no dysuria but h/o UTIs and renal stones;- to start levaquin and f/u with outpt had some headcahes this am improved with advil; f/u with neurology scripts done; d/w pt do not drive till cleared by eye and neuro d/w pt will move in with her daughter for now advised to see eye and pasquale as outpt d/w pt and staff t time 40 min Constitutional: Yes: No Distress, Calm Eyes: Yes: Conjunctiva Clear HENT: Yes: Atraumatic Neck: Yes: Supple Cardiovascular: Yes: Regular Rate and Rhythm Respiratory: Yes: CTA Bilaterally Gastrointestinal: Yes: Soft. No: Distention, Tenderness Renal/: No: CVA Tenderness - Left, CVA Tenderness - Right Musculoskeletal: No: Joint Stiffness, Joint Swelling Extremities: No: Cold, Cool Edema: No Integumentary: No: Rash, Venous Stasis Changes Neurological: Yes: WNL, Alert, Oriented ...Motor Strength: WNL Psychiatric: Yes: WNL, Alert, Oriented. No: Agitated, Suicidal Ideation Labs: CBC, BMP 07/15/17 09:50 07/15/17 05:35 Discharge Summary Reason For Visit: DIPLOPIA Current Active Problems Diplopia (Acute) Procedures: Principal: sudden diplopia Other Procedures: ASHD HTN HLP; admitted to monitored unit;. seen by cardio and neurology, meds adjusted per cardio and neuro Hospital Course: cardiac and neuro w/u unrevealing; to see eye dr and allieophtalmo as outpt; see DC f/u needed stable; DC home and f/u as advised Condition: Stable - Instructions Diet, Activity, Other Instructions: f/u with PCP in 1 week check pending labs (JANN, Lyme) results pending at DC time eye dr mercado within 1 week; consider [place] [facility] [place] until cleared by neurology and eye f/u with for UTI renal stones ENT eval r/o sinusitis RTER if worse or recurrent scripts done and d/w pt Referrals: Sang Matute MD [Primary Care Provider] - Maciej Harris MD [Staff Physician] - Memo Velasco MD., MD [Staff Physician] - Francisco J Gastelum MD [Staff Physician] - Asher Thomson MD [Staff Physician] - Disposition: VNS/HOME HEALTH CARE - Home Medications Comprehensive Discharge Medication List: Ambulatory Orders Rosuvastatin [Crestor -] 5 mg PO HS 07/09/13 Cranberry 0 mg PO TID 05/25/17 Lipase/Protease/Amylase [Zenpep Dr 10,000 Units Capsule] 40,000 units PO TID 09/06 Amlodipine Besylate [Norvasc -] 5 mg PO DAILY 30 Days #30 tablet MDD 1 05/28/17 Aspirin Coated [Ecotrin -] 81 mg PO DAILY tablet.ec 05/28/17 Metoprolol Tartrate [Lopressor -] 50 mg PO BID #60 tablet MDD 2 05/28/17
--- NOTE | 2017-07-16 08:07 | EKG ---
Test Reason : Blood Pressure : / mmHG Vent. Rate : 065 BPM Atrial Rate : 065 BPM P-R Int : 196 ms QRS Dur : 096 ms QT Int : 400 ms P-R-T Axes : 037 -17 053 degrees QTc Int : 416 ms NORMAL SINUS RHYTHM MODERATE VOLTAGE CRITERIA FOR LVH, MAY BE NORMAL VARIANT BORDERLINE ECG WHEN COMPARED WITH ECG OF 03-JUL-2017 14:15, MINIMAL CRITERIA FOR SEPTAL INFARCT ARE NO LONGER PRESENT Confirmed by JENNIFER POP MD ([id number]) on 07/16/2017 8:06:35 AM Referred By: Confirmed By:JENNIFER POP MD
[2017-07-16] MEDS ORDERED: IBUPROFEN 400 MG TABLET (FP) PO ONE (08:30)
[2017-07-16] MEDS: LIPASE/PROTEASE/AMYLASE 36,000 UNIT CAPSULE PO SCH ×2 (08:39→11:44)
--- NOTE | 2017-07-16 09:18 | PN ---
Progress Note (short form) - Note Progress Note: Neurology History of Present Illness The patient is an 86F with a PMH of colitis, anxiety (xanax as needed), HTN, HLD , and kidney stones who presents to the ED with complaints of diplopia. The patient states that she woke up at 0600 the morning of admission and saw double of everything from the right side. She says that she fell asleep last around 9 or 10 pm without any symptoms the night before. She denies CP, SOB, fever, chills, nausea, vomiting, cough, fever, chills, dysuria, rashes. CT head completed and did not show acute changes. No other focal deficits, strength and sensory normal. MRI completed and reviewed images and report. No acute changes noted. MRA brain also reviewed and no vascular malformation, aneurysms, other abnormalities. Patient doing well this AM. Likely for discharge. Active Medications Aspirin (Ecotrin -) 81 mg PO DAILY [facility] Last Admin: 07/15/17 09:45 Dose: 81 mg Metoprolol Tartrate (Lopressor -) 50 mg PO BID [facility] Last Admin: 07/15/17 21:52 Dose: 50 mg Pancrelipase (Creon Dr 36,000 Units Capsule) 1 cap PO TIDCM [facility] Last Admin: 07/16/17 08:39 Dose: Not Given Rosuvastatin Calcium (Crestor -) 5 mg PO HS [facility] Last Admin: 07/15/17 21:52 Dose: 5 mg *Physical Exam Vital Signs Period Temp Pulse Resp BP Sys/Marie Pulse Ox Last 24 Hr 97.7 F-98.4 F 58-62 16-20 124-149/61-88 98 GENERAL: Well developed, well nourished. Awake and alert. No acute distress. HEENT: Normocephalic, atraumatic. Hearing grossly normal. Moist mucous membranes. PERRLA, EOMI. No conjunctival pallor. Sclera are non-icteric. Oropharynx is clear. NECK: Supple. Full ROM. No JVD. Carotid pulses 2+ and symmetric, without bruits. No thyromegaly. No lymphadenopathy. CARDIOVASCULAR: Regular rate and rhythm. No murmurs, rubs, or gallops. Distal pulses are 2+ and symmetric. PULMONARY: No evidence of respiratory distress. Lungs clear to auscultation bilaterally. No wheezing, rales or rhonchi. ABDOMINAL: Soft. Non-tender. Non-distended. No rebound or guarding. No organomegaly. Normoactive bowel sounds. GENITOURINARY: No CVA tenderness bilaterally. MUSCULOSKELETAL: Normal range of motion at all joints. No bony deformities or tenderness. EXTREMITIES: No cyanosis. No clubbing. No edema. No calf tenderness. SKIN: Warm and dry. Normal capillary refill. No rashes. No jaundice. NEUROLOGICAL: Alert, awake, appropriate. Diplopia, worst when looking to the R. Normal vision when each eye is covered.. No deficits to light touch and temperature in face, upper extremities and lower extremities. No motor deficits in the in face, upper extremities and lower extremities. Finger to nose abnormal on R side. Normal speech. Ataxic gait. PSYCHIATRIC: Cooperative. Good eye contact. Appropriate mood and affect. CBCD WBC 6.3 K/mm3 (4.0-10.0) 07/15/17 09:50 RBC 4.33 M/mm3 (3.60-5.2) 07/15/17 09:50 Hgb 12.7 GM/dL (10.7-15.3) 07/15/17 09:50 Hct 38.7 % (32.4-45.2) 07/15/17 09:50 MCV 89.3 fl (80-96) 07/15/17 09:50 MCHC 32.8 g/dl (32.0-36.0) 07/15/17 09:50 RDW 14.9 % (11.6-15.6) 07/15/17 09:50 Plt Count 246 K/MM3 (134-434) 07/15/17 09:50 MPV 7.0 fl (7.5-11.1) L 07/15/17 09:50 CMP Sodium 142 mmol/L (136-145) 07/15/17 05:35 Potassium 4.4 mmol/L (3.5-5.1) 07/15/17 05:35 Chloride 109 mmol/L (98-107) H 07/15/17 05:35 Carbon Dioxide 25 mmol/L (21-32) 07/15/17 05:35 Anion Gap 8 (8-16) 07/15/17 05:35 BUN 24 mg/dL (7-18) H 07/15/17 05:35 Creatinine 0.9 mg/dL (0.55-1.02) 07/15/17 05:35 Creat Clearance w eGFR 47.21 (>60) 07/14/17 16:35 Calcium 9.0 mg/dL (8.5-10.1) 07/15/17 05:35 Total Bilirubin 0.3 mg/dL (0.2-1.0) D 07/14/17 16:35 AST 20 U/L (15-37) 07/14/17 16:35 ALT 25 U/L (12-78) 07/14/17 16:35 Alkaline Phosphatase 77 U/L (45-117) 07/14/17 16:35 Total Protein 6.7 g/dl (6.4-8.2) 07/14/17 16:35 Albumin 3.6 g/dl (3.4-5.0) 07/14/17 16:35 - RADIOLOGY CT head reviewed MRI, MRA brain reviewed Medical Decision Making 86F with a PMH of colitis, anxiety (xanax as needed), HTN, HLD, and kidney stones who presents to the ED with complaints of diplopia. The patient states that she woke up at 0600 the morning of admission and saw double of everything from the right side. She says that she fell asleep last around 9 or 10 pm without any symptoms the night before. She denies CP, SOB, fever, chills, nausea , vomiting, cough, fever, chills, dysuria, rashes. CT head completed and did not show acute changes. No other focal deficits, strenght and sensory normal. Son at bedside who believes possible L facial droop and slurred speech. Will like to R/O CVA. MRI and MRA completed and did not show changes Optho consult can also be considered. Will defer to PCP on this Conitnue BP monitoring, maintain normotensive range Continue statin Continue ASA for CVA prevention For discharge today
[2017-07-16] MEDS: METOPROLOL TARTRATE 50 MG TABLET (FP) PO SCH (09:40)
[2017-07-16] MEDS: ASPIRIN COATED 81 MG TABLET.EC PO SCH (09:40)
[2017-07-16 11:28] VITALS: BP 148/71; PULSE 61; TEMP 97.6
== END 2017-07-16 11:50 | disposition home health service (06) | DRG 74 ==
LOC: JER 12:47 → JERBED 17:23 → J6S 20:35 → J4S 20:50 → JERBED 21:05 → J4S 23:59
PROVIDERS: ADMIT Specialist; ATTEND Specialist
DX: G58.8 Other specified mononeuropathies (principal); I50.1 Left ventricular failure, unspecified; H53.2 Diplopia; E78.5 Hyperlipidemia, unspecified; I10 Essential (primary) hypertension; I25.10 Atherosclerotic heart disease of native coronary artery without angina pectoris; Z72.0 Tobacco use
CPT/HCPCS: 36415; 70450-TC; 70544-TC; 70551-TC; 71045-TC; 80048; 80053; 80061; 81003; 81015; 82550; 82607; 83036; 83721; 83735; 84439; 84443; 84481; 84484; 85025; 85027; 85651; 86038; 86140; 86618; 93005; 93010; 93880-TC; 99282-25

== ENCOUNTER 2017-09-02 10:32 | Emergency (ER) | payer OTHER, BC ==
[2017-09-02 10:46] VITALS: TEMP 97.8; BMI 26.5
--- NOTE | 2017-09-02 11:23 | PDOC ---
History of Present Illness - General Chief Complaint: Nausea Stated Complaint: NAUSEA Time Seen by Provider: 09/02/17 10:49 - History of Present Illness Initial Comments: 09/02/17 11:33 The patient is an 86 year old female with a history of HTN, HLD, Anxiety, Recurrent UTI who presents for evaluation of nausea. The patient reports that she presented to an Urgent Care 3 days ago for evaluation of left flank pain and was discharged on cipro with a diagnosis of acute cystitis. She then re- presented to another Urgent Care 2 days ago for evaluation of redness and was switched from cipro to augmentin at that time for concern of a drug reaction. Since then the patient has been asymptomatic, however began experiencing some nausea this morning prompting her presentation to the ED for evaluation. She states that she has continued to tolerate PO intake and denies any vomiting. She notes that she does have follow up with Dr. Velasco for her urinary infection this afternoon. She otherwise denies fevers, chills, SOB, chest pain , abdominal pain, vomiting, pain with urination or changes with bowel movements. Past History - Past Medical History Allergies/Adverse Reactions: Allergies Allergy/AdvReac Type Severity Reaction Status Date / Time Sulfa (Sulfonamide AdvReac Nausea Verified 09/02/17 10:40 Antibiotics) Home Medications: Ambulatory Orders Rosuvastatin [Crestor -] 5 mg PO HS 07/09/13 Cranberry 0 mg PO TID 05/25/17 Lipase/Protease/Amylase [Zenpep Dr 10,000 Units Capsule] 40,000 units PO TID 09/06 Aspirin Coated [Ecotrin -] 81 mg PO DAILY tablet.ec 05/28/17 Metoprolol Tartrate [Lopressor -] 50 mg PO BID #60 tablet MDD 2 07/16/17 levoFLOXacin [Levaquin -] 500 mg PO DAILY #7 tablet 07/16/17 CVA: Yes COPD: No DVT: No GI Disorders: Yes (LOW PANCREATIC ENZYMES) Disorders: Yes (COLITIS) HTN: Yes Hypercholesterolemia: Yes Psychiatric Problems: Yes (ANXIETY) - Surgical History Abdominal Surgery: Yes Appendectomy: Yes Orthopedic Surgery: Yes (LEFT KNEE ARTHROSCOPY & RIGHT) - Immunization History Immunization Up to Date: Yes - Suicide/Smoking/Psychosocial Hx Smoking History: Never smoked Have you smoked in the past 12 months: Yes Number of Cigarettes Smoked Daily: 1 If you are a former smoker, when did you quit?: 15YRS AGO Information on smoking cessation initiated: No 'Breaking Loose' booklet given: 07/14/17 Hx Alcohol Use: No Drug/Substance Use Hx: No Substance Use Type: None Hx Substance Use Treatment: No Review of Systems - Review of Systems Comments:: 09/02/17 11:38 Constitutional: No fevers, chills, fatigue, malaise HEENT: No Rhinorrhea, nasal congestion, visual changes Cardiovascular: No chest pain, syncope, palpitations, lightheadedness Respiratory: No Cough, SOB, Hemoptysis, Gastrointestinal: Nausea. No Abdominal pain, Vomiting, Constipation, Diarrhea, Melena Genitourinary: No Dysuria, Frequency, Urgency, Hesitancy, Hematuria, Flank pain Musculoskeletal: No Myalgia, arthralgia Skin: No rashes, itching, bruising, pallor Neurologic: No Headache, Dizziness, Numbness, Weakness, or Tingling Psychiatric: No Hallucinations. No SI or HI *Physical Exam - Vital Signs Last Vital Signs Temp Pulse Resp BP Pulse Ox 97.8 F 70 18 155/76 96 09/02/17 10:40 09/02/17 10:40 09/02/17 10:40 09/02/17 10:40 09/02/17 10:40 - Physical Exam Comments: 09/02/17 11:39 General Appearance: Nourished. No Apparent Distress HEENT: EOMI, JW. No Pharyngeal Erythema, Tonsillar Exudate, Tonsillar Erythema Neck: No Cervical Lymphadenopathy Respiratory/Chest: Lungs Clear, Normal Breath Sounds. No Crackles, Rales, Rhonchi, Wheezing Cardiovascular: Regular Rhythm, Regular Rate. No Murmur, Gallops, Rubs Gastrointestinal/Abdominal: Normal Bowel Sounds, Soft. No Guarding, Rebound, Tenderness Musculoskeletal: No CVA Tenderness Extremity: Normal Capillary Refill Integumentary: Normal Color, Dry, Warm Neurologic: Fully Oriented, Alert, Normal Mood/Affect, Normal Response, ED Treatment Course - LABORATORY CBC & Chemistry Diagram: 09/02/17 12:10 09/02/17 12:09 Medical Decision Making - Medical Decision Making 09/02/17 11:49 The patient is an 86 year old female with a history of HTN, HLD, Anxiety, Recurrent UTI who presents for evaluation of nausea. Given the patient's history, it is likely her symptoms are due to a UTI or cystitis. The patient does not have findings on physical exam concerning for pyelonephritis at this time. We will obtain a cbc, bmp, ua, urine culture to evaluate further. We will treat the patient in the meantime with rochepin. We will continue to monitor and reassess. 09/02/17 13:08 CBC, bmp are unremarkable. UA continues to demonstrates signs of a UTI with a positive leuk easterase and 11 WBC. We discussed the case with Dr. Velasco who agreed with our management and will see the patient in the office this afternoon to discuss further antibiotic coverage. We are comfortable discharging the patient home at this time with urology follow up. We discussed the results and the plan with the patient who voiced understanding and is agreeable with the plan. *DC/Admit/Observation/Transfer Diagnosis at time of Disposition: UTI (urinary tract infection) Qualifiers: Urinary tract infection type: site unspecified Hematuria presence: without hematuria Qualified Code(s): N39.0 - Urinary tract infection, site not specified - Discharge Dispostion Disposition: HOME Condition at time of disposition: Good Admit: No - Referrals Referrals: Sang Matute MD [Primary Care Provider] - Memo Velasco MD., [Staff Physician] - - Patient Instructions Printed Discharge Instructions: DI for Urinary Tract Infection (UTI) Additional Instructions: Please return to the ER if you experience concerning or worsening symptoms including worsening pain, fevers, or vomiting. Your lab results were normal here in the ER. Your urine showed continued signs of an infection. We have discussed your case with Dr. Velasco your urologist. Please keep your follow up appointment with Dr. Velasco this afternoon to discuss further management of your symptoms. - Post Discharge Activity
--- NOTE | 2017-09-02 11:23 | PDOC ---
Attending Attestation - HPI HPI: 09/02/17 11:44 The patient is a 86 year old female, with a significant past medical history of colitis, anxiety (xanax as needed), HTN, HLD, kidney stones, TIA (june), and frequent UTI, who presents to the emergency department with nausea today. She states she was seen at [facility] on Friday, diagnosed with cystitis and placed on ciprofloxacin, however, reportedly went to a different urgent care on Friday for redness to her face and was changed to augmentin. She denies any flank pain or urinary symptoms today, opposed to the left flank pain and dysuria she presented with on Friday at [facility], however, developed sudden onset of nausea this morning. She states she has a follow-up appointment with Dr. Velasco in about three hours. The patient denies chest pain, shortness of breath, headache and dizziness. The patient denies fever, chills, vomit, diarrhea and constipation. The patient denies dysuria, frequency, urgency and hematuria. Allergies: sulfa PCP - Dr. Sang Matute - Medical Decision Making 09/02/17 11:44 Documentation prepared by Lianne Pate, acting as medical technologist chief for Migdalia Owen MD <Lianne Pate - Last Filed: 09/02/17 11:44> - Resident Resident Name: Jonathan Newton - ED Attending Attestation I have performed the following: I have examined & evaluated the patient, The case was reviewed & discussed with the resident, I agree w/resident's findings & plan, Exceptions are as noted - Physicial Exam PE: 09/02/17 13:07 Based on past cultures, patient has history of levaquin resistance. Cipro was not effective for patient likely due to inducible resistance. Unclear if augmentin was effective, but suspect it was not. She has history of sulfa allergy. She was given rocephin in ED, has follow-up appointment with Dr. Mooney at 2:45pm today. Discussed with Dr. Mooney via phone regarding antibiotics, they will handle it in office today. <Migdalia Owen - Last Filed: 09/02/17 13:09>
[2017-09-02] MEDS ORDERED: ONDANSETRON *ODT* 4 MG TABLET SL ONE (11:27)
[2017-09-02] MEDS ORDERED: CEFTRIAXONE 1 GM in DEXTROSE 5%-WATER - 50 ML IVPB ONE (11:43)
[2017-09-02 11:59] LABS: URINE APPEARANCE CLEAR; URINE BILIRUBIN NEGATIVE (NEGATIVE); URINE BLOOD 1+ (NEGATIVE); URINE COLOR STRAW; URINE GLUCOSE (UA) NEGATIVE (NEGATIVE); URINE KETONE NEGATIVE (NEGATIVE); URINE NITRITE NEGATIVE (NEGATIVE); URINE PROTEIN NEGATIVE (NEGATIVE); URINE UROBILINOGEN NEGATIVE mg/dL (0.2-1.0)
[2017-09-02 12:07] LABS: URINE LEUK ESTERASE 2+ (NEGATIVE)
[2017-09-02 12:09] LABS: EPI CELLS RARE /HPF (FEW); URINE MUCUS RARE
[2017-09-02 12:20] LABS: BASO % 0.8 % (0-2.0); EOS % 1.1 % (0-4.5); HEMATOCRIT 39.4 % (32.4-45.2); HEMOGLOBIN 13.2 GM/dL (10.7-15.3); LYMPH % 13.4 % (8-40); MCH 29.9 pg (25.7-33.7); MCHC 33.6 g/dl (32.0-36.0); MEAN CELL VOLUME 89.1 fl (80-96); MEAN PLT VOLUME 7.5 fl (7.5-11.1); MONO % 12.5 % (3.8-10.2); NEUT % 72.2 % (42.8-82.8); PLATELET COUNT 239 K/MM3 (134-434); RBC 4.42 M/mm3 (3.60-5.2)
[2017-09-02 12:45] LABS: ANION GAP 10 (8-16); BLOOD UREA NITROGEN 18 mg/dL (7-18); CALCIUM 8.3 mg/dL (8.5-10.1); CHLORIDE 103 mmol/L (98-107); CO2 24 mmol/L (21-32); CREATININE 1.1 mg/dL (0.55-1.02); GLUCOSE,RANDOM 105 mg/dL (74-106); SODIUM 137 mmol/L (136-145)
[2017-09-02 13:46] VITALS: BP 145/68; PULSE 62
== END 2017-09-02 13:46 | disposition home or self-care (01) ==
LOC: JER 10:32
DX: N39.0 Urinary tract infection, site not specified (principal); I10 Essential (primary) hypertension; E78.00 Pure hypercholesterolemia, unspecified; F41.9 Anxiety disorder, unspecified; Z87.440 Personal history of urinary (tract) infections; Z87.891 Personal history of nicotine dependence
CPT/HCPCS: 36415; 80048; 81003; 81015; 85025; 87086; 96365; 99284-25; Q0162

== ENCOUNTER 2017-10-06 11:41 | Day surgery (SDC) | payer OTHER, BC ==
[2017-10-06] MEDS ORDERED: LIDOCAINE VISCOUS 2% ORAL/TOP 20 ML UNIT-DOSE CUP ONE (12:40)
[2017-10-06 12:45] VITALS: BMI 26.5
[2017-10-06] MEDS ORDERED: LIDOCAINE HCL/PF 2% SDV 5ML VIAL ONE (12:47)
[2017-10-06 13:52] VITALS: TEMP 97.7
[2017-10-06 15:19] VITALS: BP 146/64; PULSE 53
== END 2017-10-06 15:40 | disposition home or self-care (01) ==
LOC: JASU-ENDO 11:41
PROVIDERS: ATTEND Internal Medicine Gastroenterology
PROC: B246ZZ4 Ultrasonography of Right and Left Heart, Transesophageal (ICD-10-PCS; principal; 2017-10-06 12:45)
DX: H34.9 Unspecified retinal vascular occlusion (principal); I69.898 Other sequelae of other cerebrovascular disease
CPT/HCPCS: 93312; 93325

== ENCOUNTER 2019-01-11 11:31 | Day surgery (SDC) | payer OTHER, BC ==
[~2019-01-11 11:31] MED LIST: FERRIC CARBOXYMALTOSE 750 MG in SODIUM CHLORIDE 250 ML IVPB ONE
[2019-01-11 13:55] VITALS: BP 121/53; TEMP 98.2
[2019-01-11 14:22] VITALS: PULSE 61
== END 2019-01-11 14:20 | disposition home or self-care (01) ==
LOC: JASU-ENDO 11:31
PROVIDERS: ATTEND Internal Medicine Gastroenterology
PROC: 3E033GC Introduction of Other Therapeutic Substance into Peripheral Vein, Percutaneous Approach (ICD-10-PCS; principal; 2019-01-11)
DX: D50.9 Iron deficiency anemia, unspecified (principal)
CPT/HCPCS: 96365; J1439

== ENCOUNTER 2019-01-18 10:36 | Day surgery (SDC) | payer OTHER, BC ==
[2019-01-18 14:03] VITALS: BP 128/66; PULSE 61; TEMP 97.7
== END 2019-01-18 13:10 | disposition home or self-care (01) ==
LOC: JINFUSION 10:36
PROVIDERS: ATTEND Internal Medicine Gastroenterology
PROC: 3E033GC Introduction of Other Therapeutic Substance into Peripheral Vein, Percutaneous Approach (ICD-10-PCS; principal; 2019-01-18)
DX: D64.9 Anemia, unspecified (principal)
CPT/HCPCS: 96365; J1439

== ENCOUNTER 2019-02-09 10:22 | Day surgery (SDC) | payer OTHER, BC ==
[2019-02-08 15:00] VITALS: BMI 27.4
[2019-02-09 13:29] VITALS: TEMP 97.8
[2019-02-09 14:14] VITALS: BP 150/72; PULSE 72
== END 2019-02-09 14:14 | disposition home or self-care (01) ==
LOC: JASU-ENDO 10:22
PROVIDERS: ATTEND Internal Medicine Gastroenterology
PROC: 0DJD8ZZ Inspection of Lower Intestinal Tract, Via Natural or Artificial Opening Endoscopic (ICD-10-PCS; principal; 2019-02-09 11:30)
DX: D50.9 Iron deficiency anemia, unspecified (principal); K57.30 Diverticulosis of large intestine without perforation or abscess without bleeding

== ENCOUNTER 2019-12-28 15:50 | Inpatient (IN) | payer OTHER, BC ==
--- NOTE | 2019-12-28 15:58 | PDOC ---
Rapid Medical Evaluation Chief Complaint: Edema Time Seen by Provider: 12/28/19 15:55 Medical Evaluation: Allergies Allergy/AdvReac Type Severity Reaction Status Date / Time Sulfa (Sulfonamide AdvReac Nausea Verified 09/02/17 10:40 Antibiotics) 12/28/19 15:55 CC: left leg edema x 4-5 months, had duplex today and it showed + dvt, no hx on clots, no sob, no chest pain Exam : no calf tenderness, 1-2 + edema Plan: main ED Discharge Disposition - Diagnosis Dvt femoral (deep venous thrombosis) - Discharge Dispostion Condition at time of disposition: Stable - Referrals - Patient Instructions - Post Discharge Activity
--- NOTE | 2019-12-28 16:58 | PDOC ---
History of Present Illness - General Chief Complaint: Edema Stated Complaint: SENT BY PCP/[facility] Time Seen by Provider: 12/28/19 15:55 History Source: Patient Exam Limitations: No Limitations - History of Present Illness Initial Comments: HPI: This is an 89 y/o female with a PMH of HTN and HLD sent over by her primary Dr. Matute for a doppler of her left lower extremity. The patient reports intermittent left ankle swelling and pain over the past few months. She denies any inciting trauma, previous DVT. Doppler showed non-compression of the distal femoral vein, popliteal, and posterior tibial vein with no flow seen. Denies chest pain, SOB, headache. ROS: General: no weakness, awake and alert. In no acute distress. Cardiac: No chest pain. RRR no murmurs Respiratory:No cough, or wheezing. Lungs CTA bilaterally Gastrointestinal: no nausea, vomiting Abdominal: No diarrhea, no constipaton Musculoskeletal: Left ankle and calf pain Neurologic: No headache, weakness Hematologic: No prior PE, no anemia Skin: Left ankle erythema, left ankle edema PMH: HTN, HLD Meds: Metoprolol, Statin Allergies: Sulfa PE: General: Awake, alert, in no acute distress. Eyes: Pupils equal reactive and round, extraocular motion intact Cardiac: S1-S2 normal, regular rate and rhythm, no murmurs rubs or gallops Respiratory: Lungs clear to auscultation bilaterally Abdomen: Soft, nondistended, normal bowel sounds, nontender to palpation diffusely Extremities: Left calf and ankle with erythema and edema. Warm to the touch. Distal pulses palpable bilaterally. Neuro: Alert and oriented x3 MDM: 12/28/19 17:11 This is an 89 y/o female with a PMH of HTN and HLD sent over by Dr. Matute for a doppler study of her left leg. The doppler revealed noncompression of distal femoral, popliteal, and posterior tibial vein. Leg is warm, swollen, distal pulses are palpable. Patient will need to be admitted for vascular consult Anticoagulation needed - CBC - CMP - PT/INR - PTT 12/28/19 18:25 - Dr. Matute prefers Heparin for anticoagulation and whoever is patient registration rep for vascular surgery (Dr. Metcalf) - Admitted to Dr. Matute 12/30/19 18:06 Past History - Medical History Allergies/Adverse Reactions: Allergies Allergy/AdvReac Type Severity Reaction Status Date / Time Sulfa (Sulfonamide AdvReac Nausea Verified 09/02/17 10:40 Antibiotics) Home Medications: Ambulatory Orders Rosuvastatin [Crestor -] 5 mg PO HS 07/09/13 Lipase/Protease/Amylase [Zenpep Dr 10,000 Unit Capsule] 40,000 units PO TID 05/25/17 Metoprolol Tartrate [Lopressor -] 50 mg PO BID #60 tablet MDD 2 07/16/17 Apixaban [Eliquis -] 10 mg PO BID #75 tablet 12/30/19 Heparin - 25,000 unit IV TITR vial 12/30/19 Zolpidem Tartrate [Ambien] 5 mg PO DAILY PRN #0 tab 12/30/19 Anemia: Yes CVA: Yes COPD: No DVT: No GI Disorders: Yes (LOW PANCREATIC ENZYMES) Disorders: Yes (COLITIS) HTN: Yes Hypercholesterolemia: Yes Psychiatric Problems: Yes (ANXIETY) - Surgical History Abdominal Surgery: Yes Appendectomy: Yes Orthopedic Surgery: Yes (LEFT KNEE ARTHROSCOPY & RIGHT) - Immunization History Immunization Up to Date: Yes - Psycho-Social/Smoking History Smoking History: Never smoked Have you smoked in the past 12 months: No Number of Cigarettes Smoked Daily: 1 If you are a former smoker, when did you quit?: 15YRS AGO Information on smoking cessation initiated: No 'Breaking Loose' booklet given: 10/06/17 - Substance Abuse Hx (Audit-C & DAST Scrn) How often the patient has a drink containing alcohol: Never Score: In Men: 4 or > Positive; In Women: 3 or > Positive: 0 Screen Result (Pos requires Nsg. Audit-10AR): Negative In the last yr the pt used illegal drug/Rx for NonMed reason: No Score: Yes response is considered Positive: 0 Screen Result (Positive result requires Nsg. DAST-10): Negative *Physical Exam - Vital Signs Last Vital Signs Temp Pulse Resp BP Pulse Ox 98.4 F 85 16 144/82 96 12/28/19 15:53 12/28/19 15:53 12/28/19 15:53 12/28/19 15:53 12/28/19 15:53 ED Treatment Course - LABORATORY CBC & Chemistry Diagram: 12/30/19 07:30 12/30/19 07:30 Discharge - Discharge Information Problems reviewed: Yes Clinical Impression/Diagnosis: Dvt femoral (deep venous thrombosis) Qualifiers: Chronicity: acute Laterality: left Qualified Code(s): I82.412 - Acute embolism and thrombosis of left femoral vein Condition: Stable - Admission Yes - Follow up/Referral - Patient Discharge Instructions - Post Discharge Activity
[2019-12-28 17:24] LABS: INR 1.03 (0.83-1.09); PROTHROMBIN TIME (PATIENT) 12.2 SEC (9.7-13.0)
[2019-12-28 17:27] LABS: ACTIVATED PTT 20.2 SECONDS (25.2-36.5)
[2019-12-28 17:45] LABS: ALBUMIN 3.7 g/dl (3.4-5.0); BILIRUBIN,TOTAL 0.2 mg/dL (0.2-1); BLOOD UREA NITROGEN 31.1 mg/dL (7-18); CALCIUM 9.4 mg/dL (8.5-10.1); CREATININE 1.2 mg/dL (0.55-1.3); POTASSIUM 4.4 mmol/L (3.5-5.1); TOT PROT 6.6 g/dl (6.4-8.2)
[2019-12-28] MEDS ORDERED: HEPARIN NA (PORCINE) 5,000 UNITS/ML 1ML VIAL IVPUSH PRN ×2 (18:47)
[2019-12-28] MEDS ORDERED: HEPARIN - 25,000 UNIT in SODIUM CHLORIDE 495 ML IV SCH (19:00)
[2019-12-28 20:09] LABS: BASO % 0.8 % (0-2.0); EOS % 2.8 % (0-4.5); HEMOGLOBIN 13.2 GM/dL (10.7-15.3); LYMPH % 25.2 % (8-40); MCH 29.3 pg (25.7-33.7); MEAN CELL VOLUME 88.7 fl (80-96); MEAN PLT VOLUME 7.4 fl (7.5-11.1); MONO % 6.9 % (3.8-10.2); NEUT % 64.3 % (42.8-82.8); PLATELET COUNT 188 K/MM3 (134-434); RBC 4.51 M/mm3 (3.60-5.2); WHITE BLOOD COUNT 7.3 K/mm3 (4.0-10.0)
--- NOTE | 2019-12-28 22:47 | PDOC ---
Documentation entered by Melody Perez SCRIBE, acting as scribe for Florencia Vivar MD. Florencia Vivar MD: This documentation has been prepared by the Chris yang Brenda, SCRIBE, under my direction and personally reviewed by me in its entirety. I confirm that the documentation accurately reflects all work, treatment, procedures, and medical decision making performed by me. Attending Attestation - Resident Resident Name: NathanAnnika - ED Attending Attestation I have performed the following: I have examined & evaluated the patient, The case was reviewed & discussed with the resident, I agree w/resident's findings & plan, Exceptions are as noted - HPI HPI: 12/28/19 17:13 The patient is an 89 year old female with a significant PMH of HTN and HLD who presents to the ED sent by her PCP Dr. Matute for evaluation of left ankle swelling and r/o DVT. The patient reports that the left ankle swelling has been intermittent for the past few months and has been accompanied by pain. She denies any falls/trauma. The patient denies fever, chills,SOB and chest pain. Denies any GI/ symptoms. Allergies: Sulfa PCP: Dr. Matute - Physicial Exam PE: 12/28/19 17:23 GENERAL: Well-appearing, well-nourished. No apparent distress. HEENT: Normocephalic, atraumatic. PERRL, EOM intact. CARDIOVASCULAR: Normal S1, S2. Regular rate and rhythm. PULMONARY: Clear to auscultation bilaterally. ABDOMEN: Soft, non-distended, non-tender. EXTREMITIES: +++very swollen left LE SKIN: Warm, dry. No rash NEUROLOGICAL: No focal neurological deficits. 12/28/19 22:44 - Medical Decision Making 12/28/19 22:45 duplex doppler of left leg is POSITIVE for extensive clot pt started on anticoagulation and admitted Discharge - Discharge Information Problems reviewed: Yes Clinical Impression/Diagnosis: Dvt femoral (deep venous thrombosis) Condition: Stable - Follow up/Referral - Patient Discharge Instructions - Post Discharge Activity
[2019-12-28] MEDS ORDERED: ZOLPIDEM TARTRATE 5 MG TABLET ONE (23:52)
[2019-12-28] MEDS ORDERED: METOPROLOL TARTRATE 50 MG TABLET (FP) ONE (23:52)
[2019-12-28] MEDS: METOPROLOL TARTRATE 50 MG TABLET (FP) PO SCH (23:56)
[2019-12-29] MEDS: ZOLPIDEM TARTRATE 5 MG TABLET PO PRN (00:01)
[2019-12-29 03:15] LABS: INR 1.09 (0.83-1.09); PROTHROMBIN TIME (PATIENT) 12.9 SEC (9.7-13.0)
[2019-12-29 03:33] LABS: ACTIVATED PTT 192.4 SECONDS (25.2-36.5)
[2019-12-29 07:28] LABS: HEMOGLOBIN 13.2 GM/dL (10.7-15.3); MCH 28.4 pg (25.7-33.7); MCHC 32.3 g/dl (32.0-36.0); MEAN CELL VOLUME 87.9 fl (80-96); MEAN PLT VOLUME 7.2 fl (7.5-11.1); PLATELET COUNT 194 K/MM3 (134-434); RBC 4.66 M/mm3 (3.60-5.2); RDW 14.6 % (11.6-15.6); WHITE BLOOD COUNT 6.8 K/mm3 (4.0-10.0)
[2019-12-29 07:38] LABS: BLOOD UREA NITROGEN 25.4 mg/dL (7-18); CALCIUM 8.8 mg/dL (8.5-10.1); POTASSIUM 4.3 mmol/L (3.5-5.1)
--- NOTE | 2019-12-29 07:54 | CONSULT ---
- Consultation REQUESTING PROVIDER: Mars Metcalf - Vascular Surgery CONSULT REQUEST: We have been asked to surgically evaluate this patient for LLE DVT PCP: Sang Matute HPI: called to rogelio 89yo f w/ PMHx as noted below. Sent by her PCP Dr. Matute for evaluation of left ankle swelling. States she quarantined herself at her daughters place for duration of pandemic. Admits to prolonged sitting during this period. While in the ED she had a LE U/S which identified extensive LLE DVT. Started on a heparin drip. Denies n/v/f/c, CP, palpitations, SOB or JONES. Denies falls/trauma. PMHx: HTN. HLD Home Meds: Rosuvastatin [Crestor -] 5 mg PO HS 07/09/13 Lipase/Protease/Amylase [Zenpep Dr 40,000 units PO TID 05/25/17 Metoprolol Tartrate [Lopressor -] 50 mg PO BID #60 tablet MDD 2 07/16/17 Zolpidem Tartrate [Ambien] 5 mg PO DAILY 12/28/19 Allergies: Sulfa (nausea) ROS: 12 system review conducted and considered negative except for what's contained in the HPI. PE: GENERAL: A&O. NAD HEAD: Normal with no signs of trauma. EYES: PERRL, sclera anicteric, conjunctiva clear. NECK: Normal ROM, supple without lymphadenopathy, JVD, or masses. LUNGS: unlabored respirations on room air HEART: rrr UE: 2+ pulses, warm, well-perfused. No cyanosis. Cap refill <2 seconds. No peripheral edema. LE: LLE calf ttp. + swelling. Palpable DP, well-perfused. NEUROLOGICAL: Normal speech, gait not observed. PSYCH: Cooperative. Good eye contact. Appropriate mood and affect. Last Vital Signs Temp Pulse Resp BP Pulse Ox 98.1 F 60 18 102/63 97 12/29/19 07:02 12/29/19 07:02 12/29/19 07:02 12/29/19 07:02 12/29/19 02:35 CBC, BMP 12/29/19 07:00 12/29/19 06:00 INR, PTT INR 1.09 (0.83-1.09) 12/29/19 02:20 A/P: 89 y/o female admitted with LLE DVT. - Monitor coags - Bridge to oral AC once therapeutic (medical team preference) -- will need for 6 months - No surgical intervention - Cont medical management - Above plan discussed with Dr. Metcalf and agrees. Problem List - Problems (1) Dvt femoral (deep venous thrombosis) Code(s): I82.419 - ACUTE EMBOLISM AND THROMBOSIS OF UNSPECIFIED FEMORAL VEIN (2) Hypertension Code(s): I10 - ESSENTIAL (PRIMARY) HYPERTENSION Qualifiers: Hypertension type: essential hypertension Qualified Code(s): I10 - Essential (primary) hypertension Visit type - Case Type Case Type: ED Admission - Emergency Emergency Visit: Yes ED Registration Date: 12/28/19 Care time: The patient presented to the Emergency Department on the above date and was hospitalized for further evaluation of their emergent condition. - New patient This patient is new to me today: Yes Date on this admission: 12/29/19
[2019-12-29] MEDS: LIPASE/PROTEASE/AMYLASE 36,000 UNIT CAPSULE PO SCH ×3 (07:55→16:31)
[2019-12-29] MEDS: METOPROLOL TARTRATE 50 MG TABLET (FP) PO SCH (10:09)
[2019-12-29] MEDS ORDERED: METOPROLOL TARTRATE 50 MG TABLET (FP) ONE (10:12)
--- NOTE | 2019-12-29 10:37 | CON.CARD ---
Consult Consult Specialty:: Cardiology Referred by:: Christa Matute MD Reason for Consultation:: Anticoagulation guidance - History of Present Illness Chief Complaint: left leg edema x 4-5 months, had duplex and it showed + dvt, no hx on clots, no sob, no chest pain History of Present Illness: Patient is an 85 year old female with underlying history of hypertension, hypercholesterolemia, nephrolithiasis and colitis who presents to ED sent by her PCP Dr. Matute for evaluation of left ankle swelling and r/o DVT. The patient reports that the left ankle swelling has been intermittent for the past few months and has been accompanied by pain. She denies any falls/trauma. States she quarantined herself at her daughters place for duration of pandemic. Admits to prolonged sitting during this period. While in the ED she had a LE U/S which identified extensive LLE DVT. Started on a heparin drip. Denies n/v/f/c, CP, palpitations, SOB or JONES. Denies falls/trauma, family or personal h/o thrombophilia. - History Source History Provided By: Patient Limitations to Obtaining History: No Limitations - Past Medical History Cardio/Vascular: Yes: HTN, Hyperlipdemia Gastrointestinal: Yes: Diverticulosis, Other (pancreatitic insufficiency, ischemic colitis 2013) Renal/: Yes: Renal Calculi (requiring ESWL) Psych: Yes: Anxiety, Panic - Past Surgical History Past Surgical History: Yes: Appendectomy, Colonoscopy, Hysterectomy (TAHBSO), Tonsillectomy - Alcohol/Substance Use Hx Alcohol Use: No History of Substance Use: reports: None - Smoking History Smoking history: Never smoked Have you smoked in the past 12 months: No Aproximately how many cigarettes per day: 1 If you are a former smoker, when did you quit?: 15YRS AGO - Social History Usual Living Arrangement: Alone ADL: Independent Occupation: retired estate sales History of Recent Travel: No Home Medications - Allergies Allergies/Adverse Reactions: Allergies Allergy/AdvReac Type Severity Reaction Status Date / Time Sulfa (Sulfonamide AdvReac Nausea Verified 09/02/17 10:40 Antibiotics) - Home Medications Home Medications: Ambulatory Orders Rosuvastatin [Crestor -] 5 mg PO HS 07/09/13 Lipase/Protease/Amylase [Zenpep Dr 10,000 Unit Capsule] 40,000 units PO TID 05/25/17 Metoprolol Tartrate [Lopressor -] 50 mg PO BID #60 tablet MDD 2 07/16/17 Zolpidem Tartrate [Ambien] 5 mg PO DAILY 12/28/19 Review of Systems - Review of Systems Cardiovascular: reports: Edema Vital Signs: Vital Signs Temperature 98.1 F 12/29/19 07:02 Pulse Rate 62 12/29/19 10:09 Respiratory Rate 18 12/29/19 10:09 Blood Pressure 140/54 L 12/29/19 10:09 O2 Sat by Pulse Oximetry (%) 99 12/29/19 09:16 Constitutional: Yes: No Distress, Calm Neck: Yes: Supple Respiratory: Yes: Regular, CTA Bilaterally Gastrointestinal: Yes: Normal Bowel Sounds, Soft Cardiovascular: Yes: Regular Rate and Rhythm Heart Sounds: Yes: S1, S2 Murmur: Yes: Systolic Murmur, Grade 1 Edema: Yes Edema: LLE: 1+, RLE: Trace - Other Data Labs, Other Data: CBC, BMP 12/29/19 07:00 12/29/19 06:00 INR, PTT INR 1.09 (0.83-1.09) 12/29/19 02:20 Problem List - Problems (1) Dvt femoral (deep venous thrombosis) Code(s): I82.419 - ACUTE EMBOLISM AND THROMBOSIS OF UNSPECIFIED FEMORAL VEIN Qualifiers: Chronicity: acute Laterality: left Qualified Code(s): I82.412 - Acute embolism and thrombosis of left femoral vein (2) Diastolic dysfunction Code(s): I51.9 - HEART DISEASE, UNSPECIFIED (3) Hyperlipidemia Code(s): E78.5 - HYPERLIPIDEMIA, UNSPECIFIED Qualifiers: Hyperlipidemia type: pure hypercholesterolemia Qualified Code(s): E78.00 - Pure hypercholesterolemia, unspecified; E78.0 - Pure hypercholesterolemia (4) Hypertension Code(s): I10 - ESSENTIAL (PRIMARY) HYPERTENSION Qualifiers: Hypertension type: essential hypertension Qualified Code(s): I10 - Essential (primary) hypertension Assessment/Plan 12/28/2019 Vasc US: Left distal femoral, popliteal and posterior tibial DVT 1. LLE EVT w/o sxs suggestive of PE 2. Coronary artery disease with history of demand ischemic injury in context of hypotension, angina pectoris, negative Lexiscan MPI study for myocardial ischemia 07/01/2017 3. Diastolic left ventricular dysfunction with class 0 [place] [employer] classification left ventricular failure 4. Hypertension 5. Hypercholesterolemia 6. History of colitis 7. History of nephrolithiasis PLAN: 1. Heparin gtt-> Eliquis 10 bid x 7 days then Eliquis 5 bid for 6 months 2. Declined age-appropriate cancer screening 3. Continue Crestor 5 qd, Lopressor 50 bid 4. Thank you for consultative opportunity, f/u with Dr. Becker in office [phone]
--- NOTE | 2019-12-29 10:41 | EKG ---
Test Reason : Blood Pressure : / mmHG Vent. Rate : 078 BPM Atrial Rate : 078 BPM P-R Int : 182 ms QRS Dur : 094 ms QT Int : 396 ms P-R-T Axes : 033 -20 036 degrees QTc Int : 451 ms NORMAL SINUS RHYTHM VOLTAGE CRITERIA FOR LEFT VENTRICULAR HYPERTROPHY ABNORMAL ECG WHEN COMPARED WITH ECG OF 14-JUL-2017 17:13, NO SIGNIFICANT CHANGE WAS FOUND Confirmed by MD Manfred, Jonathan ([id number]) on 12/29/2019 10:41:30 AM Referred By: Confirmed By:Jonathan Shearer MD
--- NOTE | 2019-12-29 10:56 | HP ---
Admitting History and Physical - Primary Care Physician PCP: Shilpi Matute S - Admission Chief Complaint: LLE edema History of Present Illness: This is an 89 y/o female with a PMH of HTN and HLD sent over by PCP for a doppler of her left lower extremity. The patient reports intermittent left ankle swelling and pain over the past few months. She denies any inciting trauma, previous DVT. Doppler showed non-compression of the distal femoral vein, popliteal, and posterior tibial vein with no flow seen. Denies chest pain, SOB, headache. Started on IV heparin in ER History Source: Patient - Past Medical History Cardiovascular: Yes: HTN, Hyperlipdemia Gastrointestinal: Yes: Diverticulosis, Other (pancreatitic insufficiency, ischemic colitis 2013) Renal/: Yes: Renal Calculi (requiring ESWL) Psych: Yes: Anxiety, Panic - Past Surgical History Past Surgical History: Yes: Appendectomy, Colonoscopy, Hysterectomy (TAHBSO), Tonsillectomy - Smoking History Smoking history: Never smoked Have you smoked in the past 12 months: No Aproximately how many cigarettes per day: 1 If you are a former smoker, when did you quit?: 15YRS AGO - Alcohol/Substance Use Hx Alcohol Use: No History of Substance Use: reports: None - Social History Usual Living Arrangement: Yes: Alone Do you think of yourself as: Straight/Heterosexual ADL: Independent Occupation: retired estate sales History of Recent Travel: No Home Medications - Allergies Allergies/Adverse Reactions: Allergies Allergy/AdvReac Type Severity Reaction Status Date / Time Sulfa (Sulfonamide AdvReac Nausea Verified 09/02/17 10:40 Antibiotics) - Home Medications Home Medications: Ambulatory Orders Rosuvastatin [Crestor -] 5 mg PO HS 07/09/13 Lipase/Protease/Amylase [Zenpep Dr 10,000 Unit Capsule] 40,000 units PO TID 05/25/17 Metoprolol Tartrate [Lopressor -] 50 mg PO BID #60 tablet MDD 2 07/16/17 Apixaban [Eliquis -] 10 mg PO BID #75 tablet 12/30/19 Heparin - 25,000 unit IV TITR vial 12/30/19 Zolpidem Tartrate [Ambien] 5 mg PO DAILY PRN #0 tab 12/30/19 Family Medical History Family History: Unremarkable Review of Systems - Review of Systems Constitutional: denies: Chills, Fever Eyes: denies: Blurred Vision HENT: denies: Difficult Swallowing, Epistaxis Cardiovascular: denies: Chest Pain, Shortness of Breath Respiratory: denies: Cough, SOB Gastrointestinal: denies: Abdominal Pain, Constipation, Rectal Bleeding, Vomiting Blood Genitourinary: denies: Dysuria, Flank Pain Musculoskeletal: denies: Back Pain Integumentary: denies: Blister Neurological: denies: Confusion, Syncope, Unsteady Gait Psychiatric: reports: Altered Sleep Pattern. denies: Anxiety, Depression, Suicidal Physical Examination Vital Signs: Vital Signs Temperature 98.1 F 12/29/19 07:02 Pulse Rate 62 12/29/19 10:09 Respiratory Rate 18 12/29/19 10:09 Blood Pressure 140/54 L 12/29/19 10:09 O2 Sat by Pulse Oximetry (%) 99 12/29/19 09:16 Constitutional: Yes: No Distress, Calm Eyes: Yes: Conjunctiva Clear HENT: Yes: Atraumatic Neck: Yes: Supple Cardiovascular: Yes: Regular Rate and Rhythm Respiratory: Yes: CTA Bilaterally Gastrointestinal: Yes: Soft. No: Tenderness Renal/: No: CVA Tenderness - Left, CVA Tenderness - Right, Hematuria Musculoskeletal: No: Joint Stiffness, Joint Swelling Extremities: No: Cold, Cool Edema: Yes (LLE ) Integumentary: No: Rash Neurological: Yes: WNL, Alert, Oriented ...Motor Strength: WNL Psychiatric: Yes: WNL, Alert, Oriented. No: Agitated, Suicidal Ideation Labs: CBC, BMP 12/29/19 07:00 12/29/19 06:00 Imaging - Results Chest X-ray: Report Reviewed Other: Report Reviewed Assessment/Plan This is an 89 y/o female with a PMH of HTN and HLD admitted with LLE edema, Doppler showed non-compression of the distal femoral vein, popliteal, and posterior tibial vein with no flow seen. admit; cardiology and vascular surgery eval IV heparin f/u labs falls PFX d/w pt and staff
[2019-12-29] MEDS ORDERED: ROSUVASTATIN CA 5 MG TABLET (FP) PO SCH (22:00)
[2019-12-30] MEDS: METOPROLOL TARTRATE 50 MG TABLET (FP) PO SCH ×2 (00:07→09:13)
[2019-12-30] MEDS: APIXABAN 5 MG TABLET PO SCH ×2 (01:49→09:13)
[2019-12-30] MEDS: ZOLPIDEM TARTRATE 5 MG TABLET PO PRN (01:49)
[2019-12-30 07:02] VITALS: BMI 25.4
[2019-12-30 08:08] LABS: BASO % 0.7 % (0-2.0); EOS % 4.1 % (0-4.5); HEMATOCRIT 38.7 % (32.4-45.2); HEMOGLOBIN 12.7 GM/dL (10.7-15.3); MCH 29.2 pg (25.7-33.7); MCHC 32.8 g/dl (32.0-36.0); MEAN CELL VOLUME 89.1 fl (80-96); MEAN PLT VOLUME 7.4 fl (7.5-11.1); MONO % 10.5 % (3.8-10.2); NEUT % 63.7 % (42.8-82.8); PLATELET COUNT 171 K/MM3 (134-434); RBC 4.35 M/mm3 (3.60-5.2); RDW 14.7 % (11.6-15.6); WHITE BLOOD COUNT 6.4 K/mm3 (4.0-10.0)
[2019-12-30 08:16] LABS: INR 1.47 (0.83-1.09); PROTHROMBIN TIME (PATIENT) 17.4 SEC (9.7-13.0)
[2019-12-30 08:19] LABS: ACTIVATED PTT 40.6 SECONDS (25.2-36.5)
[2019-12-30 08:51] LABS: ALBUMIN 3.3 g/dl (3.4-5.0); BILIRUBIN,TOTAL 0.3 mg/dL (0.2-1); BLOOD UREA NITROGEN 27.3 mg/dL (7-18); CALCIUM 8.8 mg/dL (8.5-10.1); CREATININE 1.1 mg/dL (0.55-1.3); POTASSIUM 4.2 mmol/L (3.5-5.1); TOT PROT 6.1 g/dl (6.4-8.2)
[2019-12-30] MEDS ORDERED: PT OWN MED DRAWER 7, Y5N ONE ×4 (08:57→16:36)
--- NOTE | 2019-12-30 09:10 | DS ---
Physical Examination Vital Signs: Vital Signs Temperature 98.1 F 12/30/19 06:00 Pulse Rate 106 H 12/30/19 06:00 Respiratory Rate 18 12/30/19 06:00 Blood Pressure 152/64 12/30/19 06:00 O2 Sat by Pulse Oximetry (%) 99 12/30/19 01:30 Findings/Remarks: seen by cardio and vascular sx; switched to eliquis 10 mg po bid x 1 week then 5 mg bid x 6 months d/w pt plan of tx also avoid ASA Nsaids while on eliquis; d/w pt malignancy w/u outpt pap [facility] GI colonoscopy mammogram and CAP CT r/o mass she will think about it and d/w PCP outpt - advised to see PCP within 1 week also cardio f/u Constitutional: Yes: No Distress, Calm Eyes: Yes: Conjunctiva Clear HENT: Yes: Atraumatic Neck: Yes: Supple Cardiovascular: Yes: Regular Rate and Rhythm Respiratory: Yes: Diminished Gastrointestinal: Yes: Soft. No: Tenderness Renal/: No: Hematuria Musculoskeletal: No: Joint Stiffness, Joint Swelling Extremities: No: Cold, Cool, Cyanosis Edema: No (much better ) Integumentary: No: Rash, Venous Stasis Changes Neurological: Yes: Alert, Oriented ...Motor Strength: WNL Psychiatric: Yes: Alert, Oriented. No: Agitated, Suicidal Ideation Labs: CBC, BMP 12/30/19 07:30 12/30/19 07:30 Discharge Summary Problems reviewed: Yes Reason For Visit: DEEP VEIN THROMBOSIS DVT OF FEMORAL VEIN Current Active Problems Dvt femoral (deep venous thrombosis) (Acute) Procedures: Principal: 89 YOF Insomnia HTN admitted with LLE DVT Other Procedures: AC per cardio; malignancy w/u outpt Hospital Course: tolerated AC; DC home f/u as advised Condition: Stable - Instructions Diet, Activity, Other Instructions: Eliquis 10 mg po bid x 1 week until 01/04 then 5 mg po bid x 6 months f/u PCP and cardiology in 1-2 weeks; RTER if worse or recurrent Referrals: Sang Matute MD [Primary Care Provider] - Asher Thomson MD [Staff Physician] - Disposition: HOME - Home Medications Comprehensive Discharge Medication List: Ambulatory Orders Rosuvastatin [Crestor -] 5 mg PO HS 07/09/13 Lipase/Protease/Amylase [Zenpep Dr 10,000 Unit Capsule] 40,000 units PO TID 05/25/17 Metoprolol Tartrate [Lopressor -] 50 mg PO BID #60 tablet MDD 2 07/16/17 Zolpidem Tartrate [Ambien] 5 mg PO DAILY 12/28/19
[2019-12-30] MEDS: LIPASE/PROTEASE/AMYLASE 36,000 UNIT CAPSULE PO SCH ×3 (09:12→18:12)
--- NOTE | 2019-12-30 09:39 | PN ---
Progress Note, Physician History of Present Illness: LLE edema and discomfort improving with anticoagulation. Denies chest pain, dyspnea, near or true syncope. - Current Medication List Current Medications: Active Medications Apixaban (Eliquis -) 10 mg PO BID [facility] Stop: 01/04/20 23:59 Last Admin: 12/30/19 09:13 Dose: 10 mg Documented by: Metoprolol Tartrate (Lopressor -) 50 mg PO BID [facility] Last Admin: 12/30/19 09:13 Dose: 50 mg Documented by: Pancrelipase (Ketty Jiang 36,000 Units Capsule) 1 cap PO TIDCM [facility] Last Admin: 12/30/19 09:12 Dose: 1 cap Documented by: Rosuvastatin Calcium (Crestor -) 5 mg PO HS [facility] Last Admin: 12/30/19 00:07 Dose: 5 mg Documented by: Zolpidem Tartrate (Ambien -) 5 mg PO HS PRN PRN Reason: INSOMNIA Last Admin: 12/30/19 01:49 Dose: 5 mg Documented by: - Objective Vital Signs: Vital Signs Temperature 98.1 F 12/30/19 06:00 Pulse Rate 106 H 12/30/19 06:00 Respiratory Rate 18 12/30/19 06:00 Blood Pressure 152/64 12/30/19 06:00 O2 Sat by Pulse Oximetry (%) 99 12/30/19 01:30 Constitutional: Yes: No Distress, Calm Neck: Yes: Supple Cardiovascular: Yes: Regular Rate and Rhythm Respiratory: Yes: Regular, CTA Bilaterally Gastrointestinal: Yes: Normal Bowel Sounds, Soft, Abdomen, Obese Edema: No Labs: CBC, BMP 12/30/19 07:30 12/30/19 07:30 INR, PTT INR 1.47 (0.83-1.09) H 12/30/19 07:30 Problem List - Problems (1) Dvt femoral (deep venous thrombosis) Code(s): I82.419 - ACUTE EMBOLISM AND THROMBOSIS OF UNSPECIFIED FEMORAL VEIN Qualifiers: Chronicity: acute Laterality: left Qualified Code(s): I82.412 - Acute embolism and thrombosis of left femoral vein (2) Diastolic dysfunction Code(s): I51.9 - HEART DISEASE, UNSPECIFIED (3) Hyperlipidemia Code(s): E78.5 - HYPERLIPIDEMIA, UNSPECIFIED Qualifiers: Hyperlipidemia type: pure hypercholesterolemia Qualified Code(s): E78.00 - Pure hypercholesterolemia, unspecified; E78.0 - Pure hypercholesterolemia (4) Hypertension Code(s): I10 - ESSENTIAL (PRIMARY) HYPERTENSION Qualifiers: Hypertension type: essential hypertension Qualified Code(s): I10 - Esse ntial (primary) hypertension Assessment/Plan 12/28/2019 Vasc US: Left distal femoral, popliteal and posterior tibial DVT 1. LLE EVT w/o sxs suggestive of PE 2. Coronary artery disease with history of demand ischemic injury in context of hypotension, angina pectoris, negative Lexiscan MPI study for myocardial ischemia 07/01/2017 3. Diastolic left ventricular dysfunction with class 0 [place] [employer] classification left ventricular failure 4. Hypertension 5. Hypercholesterolemia 6. History of colitis 7. History of nephrolithiasis PLAN: 1. Eliquis 10 bid x 7 days then Eliquis 5 bid for 6 months 2. Declined age-appropriate cancer screening 3. Continue Crestor 5 qd, Lopressor 50 bid 4. F/u with Dr. Becker in office
[2019-12-30 15:17] VITALS: BP 121/82; PULSE 66; TEMP 97.9
== END 2019-12-30 18:14 | disposition home or self-care (01) | DRG 300 ==
LOC: JER 15:50 → JERBED 18:02 → J5S 12-30 00:57
PROVIDERS: ADMIT Specialist; ATTEND Specialist
DX: I82.412 Acute embolism and thrombosis of left femoral vein (principal); I50.32 Chronic diastolic (congestive) heart failure; I10 Essential (primary) hypertension; E78.5 Hyperlipidemia, unspecified
CPT/HCPCS: 36415; 80048; 80053; 85025; 85027; 85610; 85730; 93005; 93010; 93971-TC; 99285-25; J1644; U0003